=== PATIENT | male | born 1985 ===

== ENCOUNTER 2025-01-24 15:17 | Observation (INO) | payer OTHER, SELFPAY ==
[2025-01-24] VITALS (39 sets, daily range): BP systolic 111–134; BP diastolic 77–93; PULSE 97–127; RESP 15–31; TEMP 36.6–37.6; O2SAT 90–100
--- NOTE | 2025-01-24 15:30 | RT.EKG_ITS ---
APPROVED REPORT Exam: Resting ECG Reason for Exam: ETOH withdrawal Patient Location: E HR:104 bpm ECG Measurements Heart Rate 104 AXIS NJ 159 P 50 QRSd 87 QRS 18 QT 379 T -23 QTc 499 Conclusion Sinus tachycardia...rate> 99 Normal [place]/Interval NS ST changes, nothing acute
--- NOTE | 2025-01-24 15:39 | W.ED.GENAD ---
Discharge Plan Disposition Patient Disposition: Admit to [facility] Condition: Stable Discharge Details Clinical Impression: Alcohol withdrawal, Lactic acidosis Admit Date/Time: 01/24/25 19:11 Admit Provider: Clark Mckeon Attending Provider: Clark Mckeon Primary Care Provider: Unknown,Unknown ED Provider: Joey Burt [facility] General Date/Time Provider Initiated Documentation: 01/24/25 15:30. HPI Narrative: 39 year-old male presents to ED today by POV/ambulating with his mother with a chief complaint of alcohol abuse, withdrawal with onset today- has had assisted alcohol use disorder, with two brief hiatus', most recently quit for 2 weeks before going on quite a binge for the last 3 weeks due to impending divorce from his . Quality described as feels shaky, nauseous, vomiting, no radiation to cough, chest pain, severe abdominal pain, neck stiffness, slurred speech, visual changes. Severity is described as severe. Palliating factors include nothing specific attempted. Provoking factors include nothing specific. Events leading up to the incident/Associated Symptoms: Patient denies history of ETOH withdrawal seizure, is open to speaking with Awning Assembler. Patient not anticoagulated. Related Data Home Medications ?Medication ?Instructions ?Recorded ?Confirmed Unknown [No Known Home Meds] 01/24/25 01/24/25 Allergies Allergy/AdvReac Type Severity Reaction Status Date / Time No Known Allergies Allergy Unverified 01/24/25 15:31 General Stated Complaint: Anxiety COLTON: 3 Review of Systems All systems reviewed & are unremarkable except as noted in HPI and below Exam Narrative Exam Narrative: GENERAL APPEARANCE: Well-nourished, toxic, awake and alert, atraumatic, moderate acute distress. SKIN: Warm, pink, diaphoretic, has a petechial rash to his torso which he says is new, is also chronic psoriasis on both upper extremities HEAD: Normocephalic, atraumatic, normal hair distribution for gender/age. EYES: Normal conjunctiva, no exudates on lids/lashes. ENT: Nares patent, no circumoral cyanosis, no facial swelling NECK: Supple, trachea midline, painless cervical ROM. LUNGS/CHEST: Lungs CTA bilaterally- no rhonchi/rales/wheezes diffusely, non-labored respirations, normal A/P diameter, symmetrical expansion, no chest wall deformity HEART (CV/PV): Regular rate and rhythm without murmur, tachycardic, no peripheral edema, no JVD. ABDOMEN: Soft, non-distended, no guarding, no tenderness. MSK: Normal ROM, no swelling/deformity to bilateral UEs or LEs, moving all extremities without weakness, no cyanosis, spine midline without tenderness, normal curvature. NEURO: Mental Status AAOx4 - alert to person, place, time, events No facial droop, no forehead involvement. Motor: No focal weakness - strength 5/5 in bilateral UEs and LEs, proximal and distal, symmetric. Has + tongue fasciculations, no asterixis Sensory: sensation intact to light touch globally. Gait normal: patient ambulated without ataxia into ED room. PSYCH: dysthymic, cooperative, pleasant, appropriate speech Course Vital Signs Vital signs: Vital Signs Temperature 36.6 C 01/24/25 15:22 Pulse 122 H 01/24/25 15:22 Respiratory Rate 25 H 01/24/25 15:22 Blood Pressure 134/80 01/24/25 15:22 Pulse Oximetry 98 01/24/25 15:22 Temperature 36.6 C 01/24/25 15:22 Temperature Source Oral 01/24/25 15:22 Pulse 122 H 01/24/25 15:22 Respiratory Rate 25 H 01/24/25 15:22 Blood Pressure 134/80 01/24/25 15:22 Blood Pressure Position Sitting 01/24/25 15:22 Pulse Oximetry 98 01/24/25 15:22 Oxygen Delivery Method Room Air 01/24/25 15:22 Oxygen Flow Rate 0 01/24/25 15:22 Pain Level 0 01/24/25 15:22 Medical Decision Making This dictation utilizes [id number] dictation software and may contain unedited grammatical errors. 39 year-old male presents to ED today by POV/ambulating with his mother with a chief complaint of alcohol abuse, withdrawal with onset today- has had assisted alcohol use disorder, with two brief hiatus', most recently quit for 2 weeks before going on quite a binge for the last 3 weeks due to impending divorce from his . Quality described as feels shaky, nauseous, vomiting, no radiation to cough, chest pain, severe abdominal pain, neck stiffness, slurred speech, visual changes. Severity is described as severe. Palliating factors include nothing specific attempted. Provoking factors include nothing specific. Events leading up to the incident/Associated Symptoms: Patient denies history of ETOH withdrawal seizure, is open to speaking with Awning Assembler. Patients' medical history: Alcohol use disorder. Family and social history: Has been drinking 3 bottles of wine daily for the past 3 weeks, before this he took 2 weeks off from alcohol, and has a brief remission of a couple months in the remote past, denies IV drug use, has not eaten in 3 weeks per his account. Pertinent exam findings / vital signs include tongue fasciculations, benign cardiopulmonary status with sinus tachycardia, benign abdomen, neuro intact. Differential / pathologies of concern include ETOH withdrawal, hepatitis, sepsis, pancreatitis. Diagnostic studies of: -CBC, CMP, lactate, urinalysis, alcohol level, lipase, magnesium, CRP/ESR, urine drug screen, PT/INR, conjugated bilirubin level, alcohol level, hepatitis panel send no, EKG, blood cultures, x-ray chest. - CBC shows no leukocytosis, no left shift, normal - CMP has significant derangements of a mildly low sodium at 133, low potassium at 3.2, anion gap of 17.7, with significantly elevated AST at 425 greater than ALT at 90 with alk phos at 599, bilirubin 4.5 with 2.7 conjugated bilirubin - CRP is 4.78, ESR is 103 - Initial lactate 5.3 - Lipase 117 - His urine shows bilirubin, trace ketones and no signs of infection - UDS is negative - Alcohol level negative - Blood cultures pending - X-ray chest pending at time of admission - EKG shows sinus tachycardia without any ischemic changes, no T wave abnormalities - hepatitis panel pending Interventions of: -2 mg of Ativan IV, banana bag IVF, consulted with hospitalist Dr. Mckeon at 1915 who accepts for admission. ED Course/Assessment/Plan: 39-year-old male presents after 3-week binge on alcohol with withdrawal symptoms of acute nausea and vomiting and shakiness, also has significantly elevated lactate and deranged LFTs, electrolytes, was given Ativan for his tongue fasciculations, had a CIWA of 10 and initially and was well-controlled with this 1 dose of Ativan but infection cannot be ruled out so I did have the patient admitted to hospitalist service with x-ray pending for infection search, patient is open to speaking with silver recovery operator tomorrow in the morning. Dr. Mckeon excepted for admission at 1915. Disposition of Alcohol Withdrawal, Lactic Acidosis. Patient verbalized understanding of the plan and return to ED criteria and engaged in shared decision making. Medical Records Medical records reviewed: Yes I reviewed the patient's medical records. Imaging Data Radiologic Study: Attestation: I personally reviewed and interpreted this imaging study as follows: Imaging: X-Ray My impression: Pending at admission Lab Data Lab results reviewed: Yes I reviewed the patient's lab results. Labs: 01/24/25 19:08 Blood Blood Culture - Pending 01/24/25 19:08 Blood Blood Culture - Pending Laboratory Tests Range/Units 01/24/25 01/24/25 15:54 17:24 WBC (4.4-10.8) 10^3/uL 10.72 RBC (4.36-5.78) 10^6/uL 4.65 Hgb (13.5-17.5) g/dL 14.8 Hct (40.0-50.0) % 42.1 MCV (80-95) fL 91 MCH (27.0-33.0) pg 31.8 MCHC (32.0-36.0) % 35.2 RDW (11.8-14.1) % 16.9 H Plt Count (130-400) 10^3/uL 122 L MPV (8.0-11.0) fL 10.2 Immature Gran % % 0.4 Neutrophils % % 82.9 Lymphocytes % % 7.6 Monocytes % % 8.0 Eosinophils % % 0.2 Basophils % % 0.9 Nucleated RBC % (0.0-0.3) % 0.0 Absolute Neutrophils (1.2-6.7) 10^3/uL 8.88 H Absolute Lymphocytes (1.2-3.4) 10^3/uL 0.82 L Absolute Monocytes (0.1-0.8) 10^3/uL 0.86 H Absolute Eosinophils (0.0-0.7) 10^3/uL 0.02 Absolute Basophils (0.0-0.2) 10^3/uL 0.10 ESR (0-15) mm/hr 103 H PT (9.1-11.1) sec 17.6 H INR (0.9-1.1) 1.8 H VBG Lactate (<or=2.0) mmol/L 5.3 H* Sodium (136-145) mmol/L 133 L Potassium (3.5-5.1) mmol/L 3.2 L Chloride (98-107) mmol/L 93 L Carbon Dioxide (21.0-32.0) mmol/L 22.3 Anion Gap (3-11) mmol/L 17.7 H BUN (7-18) mg/dL 1 L Creatinine (0.70-1.30) mg/dL 0.8 Est GFR (CKD-EPI 2020) (mL/min/1.73m2) 115.45 Glucose (74-106) mg/dL 144 H Calcium (8.5-10.1) mg/dL 9.5 Magnesium (1.8-2.4) mg/dL 1.8 Total Bilirubin (0.2-1.0) mg/dL 4.5 H Conjugated Bilirubin (0.0-0.2) mg/dL 2.7 H AST (15-37) U/L 425 H ALT (16-63) U/L 90 H Alkaline Phosphatase (46-116) U/L 599 H C-Reactive Protein (<or=0.5) mg/dL 4.78 H Total Protein (6.4-8.2) g/dL 9.5 H Albumin (3.4-5.0) g/dL 3.7 Lipase (<78) U/L 117 H Urine Color (Yellow) Dark Yellow Urine Clarity (Clear) Clear Urine pH (5-8) 8.5 H Ur Specific [place] (1.005-1.025) 1.015 Urine Protein (Neg-Trace) mg/dL 100 H Urine Ketones (Negative) mg/dL Trace H Urine Blood (Negative) Negative Urine Nitrite (Negative) Negative Urine Bilirubin (Negative) Moderate H Urine Urobilinogen (Up to 0.2) mg/dL 4.0 H Ur Leukocyte Esterase (Negative) Negative Urine RBC (0-2) HPF 0-2 Urine WBC (0-5) HPF 0-2 Ur Epithelial Cells (Negative) HPF Rare Urine Crystals (Negative) HPF Negative Urine Bacteria (Negative) HPF Negative Urine Mucus (Negative) Heavy Ur Culture Indicated? No Urine Glucose (Negative) mg/dL 100 H Urine Opiates Screen (Negative) Negative Urine Methadone Screen (Negative) Negative Ur Barbiturates Screen (Negative) Negative Ur Tricyclics Screen (Negative) Negative Ur Amphetamines Screen (Negative) Negative U Benzodiazepines Scrn (Negative) Negative Urine Cocaine Screen (Negative) Negative Ur THC Screen (Negative) Negative Ethyl Alcohol (<10) mg/dL < 3.0 Quality:SDOH Health Related Social Needs: Health related social needs risk of homeless personal safety finding work lonely/isolated education Health related social needs details Pt needs new home, job and support. Dad [facility] [place] [facility] Parkinsons PFS All Active Problems (Updated 01/24/25 @ 19:18 by DARIN Marx) Lactic acidosis (Acute) Alcohol withdrawal (Acute) Social History Smoking/Tobacco Use Status: Former Tobacco Use Tobacco: How many years used: 19 Smoking risk assessment performed?: Yes Alcohol Intake: current Alcohol Intake frequency: 3 or more drinks per day Alcohol type: wine Drug use: Current Sobriety Substance use type: marijuana Housing: homeless Do you feel safe at home: No Do you feel safe in your relationship?: No PAWSS Have you Been Recently Intoxicated or Drunk Within the Last 30 days?: Yes Have you Ever Experienced Previous Episodes of Alcohol Withdrawal?: No Have you ever Experienced Withdrawal Seizures?: No Have you ever Experienced Delirium Tremens(DT)s?: No Have you ever undergone Alcohol Rehabilitation Treatment (i.e, inpt ot outpatient treatment programs)?: No Have you ever Experienced Blackouts?: Yes Have you ever Combined Alcohol with other Downers within the last 90 days?: No Have you ever Combined Alcohol with any other Substance of Abuse during the last 90 days?: No Positive Blood Alcohol level on Presentation? [PCS.BAL]: Unable to Obtain Evidence of Increased Autonomic Activity (i.e. HR>120, tremor, sweating, agitation, nausea)?: Yes Result: 3
[2025-01-24] MEDS: LORazepam 20 MG/10 ML VIAL IVP (16:00)
[2025-01-24] MEDS: MAGNESIUM SULFATE 8.12 MEQ, MULTIVITAMIN 10 ML, THIAMINE 100 MG, FOLIC ACID 1 MG in Nor... 168.867 MG IV (16:01)
[2025-01-24 16:22] LABS: Abs Immature Grans 0.04 10^3/uL (0.0-0.06); HCT 42.1 % (40.0-50.0); HGB 14.8 g/dL (13.5-17.5); Immature Grans % 0.4 %; MCH 31.8 pg (27.0-33.0); MCHC 35.2 % (32.0-36.0); MCV 91 fL (80-95); MPV 10.2 fL (8.0-11.0); Platelet Count 122 10^3/uL (130-400); RBC 4.65 10^6/uL (4.36-5.78); RDW 16.9 % (11.8-14.1); RDW-SD 55.7 fL; WBC 10.72 10^3/uL (4.4-10.8)
[2025-01-24 16:40] LABS: ALT 90 U/L (16-63); AST 425 U/L (15-37); Albumin 3.7 g/dL (3.4-5.0); Alkaline Phosphatase 599 U/L (46-116); Anion Gap 17.7 mmol/L (3-11); BUN 1 mg/dL (7-18); Bilirubin, Total 4.5 mg/dL (0.2-1.0); CO2 22.3 mmol/L (21.0-32.0); Calcium 9.5 mg/dL (8.5-10.1); Chloride 93 mmol/L (98-107); Estimated GFR 115.45 (mL/min/1.73m2); Glucose 144 mg/dL (74-106); Lipase 117 U/L (<78); Magnesium 1.8 mg/dL (1.8-2.4); Potassium 3.2 mmol/L (3.5-5.1); Sodium 133 mmol/L (136-145); Total Protein 9.5 g/dL (6.4-8.2)
[2025-01-24 17:55] LABS: ESR 103 mm/hr (0-15)
[2025-01-24 18:04] LABS: Glucose 100 mg/dL (Negative)
[2025-01-24 18:13] LABS: C-Reactive Protein 4.78 mg/dL (<or=0.5)
[2025-01-24 18:25] LABS: Bilirubin, Direct 2.7 mg/dL (0.0-0.2)
[2025-01-24 18:29] LABS: C & S Indicated? No; RBC 0-2 HPF (0-2); WBC 0-2 HPF (0-5)
[2025-01-24 18:31] LABS: INR 1.8 (0.9-1.1); Prothrombin Time 17.6 sec (9.1-11.1)
[2025-01-24 18:45] LABS: Cannabinoids THC Negative (Negative); METHADONE URINE SCREEN Negative (Negative)
--- NOTE | 2025-01-24 19:00 | DI.RAD_ITS ---
Exam(s) XR CHEST 2V PA LATERAL EXAM: XR CHEST 2V PA LATERAL CLINICAL HISTORY: infection search TECHNIQUE: 2D digital imaging was performed. Two views. COMPARISON: No exams were available for comparison FINDINGS: HEART: Normal size. Aorta: Not dilated. PULMONARY VASCULATURE: Normal. MEDIASTINUM: Unremarkable. LUNGS: Suboptimally inflated. Linear atelectasis or scarring at the left lower lung field. No focal area of consolidation. PLEURAL SPACE: No pleural effusion or pneumothorax. BONE:Unremarkable for age. SOFT TISSUES: Unremarkable. IMPRESSION: No acute abnormality. The preliminary [facility] report was reviewed. DATA REPOSITORY: RADIATION DOSE DELIVERED:
--- NOTE | 2025-01-24 19:38 | W.PM.HP.N ---
Date of service: 01/24/25 Time of Service: 20:00 Assessment and Plan Assessment and plan (1) Alcohol withdrawal syndrome with complication: Status: Acute Assessment and plan: Presumptive diagnosis despite negative BAL with last drink 24 hours prior Anxiety, shakes, N/V after 3 week binge on wine is consistent with EtOH withdrawal Liver enzyme elevations concerning for acute on chronic liver failure Lipase elevated 117, likely due to dehydration, however keep pancreatitis on the differential Admit to observation for EtOH withdrawal on CIWA protocol with benzodiazepines, on cardiac monitoring He is able to tolerate a diet PRN anti-emetics Madi score is zero for inpatient VTE risk, no VTE chemoprophylaxis at this time (2) Electrolyte disturbance: Status: Acute Assessment and plan: Hyponatremia 133, hypokalemia 3.2, hypochloremia 93 with elevated anion gap 17.7 on initial labs. No renal injury at this time. Will discontinue banana bag as vitamin supplementation is not acute treatment Mental status appears intact, will defer intensive thiamine supplementation Fluid resuscitation with LR 1L bolus followed by LR @ 125 Monitor metabolic panel with morning labs (3) Elevated liver function tests: Status: Acute Assessment and plan: AST more than 10x normal at 425, ALT mildly elevated at 90, alkaline phosphatase elevated more than 5x normal at 599 Elevated bilirubin, predominantly conjugated, in the setting of AST elevation more likely hepatic injury Hepatitis panel, lipid panel, iron, panel, A1C pending with morning labs On arrival labs, his Child-Monsalve score for liver disease severity is 9, class B. MELD score 19 not indicating impaired survival odds. Monitor morning CMP for post-fluid improvement (4) Lactic acidosis: Status: Acute Assessment and plan: Elevated lactic acid and elevated CRP without clear indication of infectious etiology, more likely dehydration Will repeat VBG LA in the morning (5) Alcohol dependence with alcohol-induced anxiety disorder: Status: Acute Assessment and plan: Longstanding EtOH abuse without specific diagnosis of generalized anxiety Recommended that he pursue offered recovery services History of Present Illness History of Present Illness Chief Complaint: pain, anxiety, N/V Narrative: Bird Mcgarry is a 39 year old man presenting January 24 with shooting pains, anxiety, shakes, nausea, vomiting and inability to tolerate food. Shooting pains are in his abdomen and he reports 10/10 pain when it happens. Patient reports that he had stopped drinking for 2 weeks recently, in order to save his marriage. 3 weeks ago he started drinking again when his filed for divorce. He reports that his last drink was about 24 hours before arrival. He reports that he has been drinking 3 bottles of wine per day for 3 weeks and has not eaten anything during that period. He reports heavy drinking for many years. He does not recall needing medical care for anything. He does not recall having seizures or other withdrawal symptoms in the past, particularly when he stopped drinking for 2 weeks last month. He takes no medications. He is willing to try to quit drinking now. No chest pain, no shortness of breath, no diarrhea. In the ED he was found to be tachycardic 122, tachypneic 31, with mildly low SpO2 90%. EKG with sinus tachycardia. CBC with thrombocytopenia 122. Coag panel with INR 1.8. VBG with elevated lactate 5.3. CMP with general electrolyte derangement, no apparent KRISTIN. Liver panel with elevated bilirubin 4.5 with conjugated 2.7, AST 425 more than 10x normal, ALT 90 less than 2x normal. Lipase elevated 117. CRP elevated 4.78. Urine with significant protein and urobilinogen. BAL and UDS negative. Hepatitis panel drawn. Covid/flu/RSV sent. CXR unremarkable. He was given lorazepam and a banana bag. PMH includes BUE psoriasis, never treated. PFSH All Active Problems (Updated 01/24/25 @ 22:02 by Clark Mckeon MD) Alcohol withdrawal syndrome with complication (Acute) Alcohol dependence with alcohol-induced anxiety disorder (Acute) Alcohol withdrawal (Acute) Lactic acidosis (Acute) Electrolyte disturbance (Acute) Elevated liver function tests (Acute) Social History Smoking/Tobacco Use Status: Former Tobacco Use Tobacco: How many years used: 19 Smoking risk assessment performed?: Yes Alcohol Intake: current Alcohol Intake frequency: 3 or more drinks per day Alcohol type: wine Drug use: Current Sobriety Substance use type: marijuana Housing: homeless Do you feel safe at home: No Do you feel safe in your relationship?: No Meds Allergies and Home Medications Allergies Allergy/AdvReac Type Severity Reaction Status Date / Time No Known Allergies Allergy Unverified 01/24/25 15:31 Home Medications ?Medication ?Instructions ?Recorded ?Confirmed ?Type Unknown [No Known Home Meds] 01/24/25 01/24/25 History Exam Narrative Exam Narrative: General: This is an anxious man in no acute distress HEENT: Normocephalic, atraumatic. Tongue fasciculations reported in ED, none seen on my exam. CV: tachycardic, regular rhythm. Petechia across upper torso. Resp: CTAB Abd: soft, NTND MSK: voluntary motion x4 Skin: Warm and dry. BUE with psoriatic rash Neuro: awake, alert, no focal deficits Results Labs 01/24/25 15:54 01/24/25 15:54 Labs: Laboratory Results - last 24 hr 01/24/25 01/24/25 15:54 17:24 WBC 10.72 RBC 4.65 Hgb 14.8 Hct 42.1 MCV 91 MCH 31.8 MCHC 35.2 RDW 16.9 H Plt Count 122 L MPV 10.2 Immature Gran % 0.4 Neutrophils % 82.9 Lymphocytes % 7.6 Monocytes % 8.0 Eosinophils % 0.2 Basophils % 0.9 Nucleated RBC % 0.0 Absolute Neutrophils 8.88 H Absolute Lymphocytes 0.82 L Absolute Monocytes 0.86 H Absolute Eosinophils 0.02 Absolute Basophils 0.10 ESR 103 H PT 17.6 H INR 1.8 H VBG Lactate 5.3 H* Sodium 133 L Potassium 3.2 L Chloride 93 L Carbon Dioxide 22.3 Anion Gap 17.7 H BUN 1 L Creatinine 0.8 Est GFR (CKD-EPI 2020) 115.45 Glucose 144 H Calcium 9.5 Magnesium 1.8 Total Bilirubin 4.5 H Conjugated Bilirubin 2.7 H AST 425 H ALT 90 H Alkaline Phosphatase 599 H C-Reactive Protein 4.78 H Total Protein 9.5 H Albumin 3.7 Lipase 117 H Urine Color Dark Yellow Urine Clarity Clear Urine pH 8.5 H Ur Specific [place] 1.015 Urine Protein 100 H Urine Ketones Trace H Urine Blood Negative Urine Nitrite Negative Urine Bilirubin Moderate H Urine Urobilinogen 4.0 H Ur Leukocyte Esterase Negative Urine RBC 0-2 Urine WBC 0-2 Ur Epithelial Cells Rare Urine Crystals Negative Urine Bacteria Negative Urine Mucus Heavy Ur Culture Indicated? No Urine Glucose 100 H Urine Opiates Screen Negative Urine Methadone Screen Negative Ur Barbiturates Screen Negative Ur Tricyclics Screen Negative Ur Amphetamines Screen Negative U Benzodiazepines Scrn Negative Urine Cocaine Screen Negative Ur THC Screen Negative Ethyl Alcohol < 3.0 Last Vital Signs Temp 36.6 C 01/24/25 15:22 Pulse 116 H 01/24/25 18:50 Resp 26 H 01/24/25 18:50 BP 124/77 01/24/25 17:15 Pulse Ox 93 01/24/25 18:50 PAWSS Have you Been Recently Intoxicated or Drunk Within the Last 30 days?: Yes Have you Ever Experienced Previous Episodes of Alcohol Withdrawal?: No Have you ever Experienced Withdrawal Seizures?: No Have you ever Experienced Delirium Tremens(DT)s?: No Have you ever undergone Alcohol Rehabilitation Treatment (i.e, inpt ot outpatient treatment programs)?: No Have you ever Experienced Blackouts?: Yes Have you ever Combined Alcohol with other Downers within the last 90 days?: No Have you ever Combined Alcohol with any other Substance of Abuse during the last 90 days?: No Positive Blood Alcohol level on Presentation? [PCS.BAL]: Unable to Obtain Evidence of Increased Autonomic Activity (i.e. HR>120, tremor, sweating, agitation, nausea)?: Yes Result: 3 Time Spent Time spent with Patient: 40-54 minutes Time was spent: preparing to see the patient(eg.review tests), obtaining and/or reviewing separately otained hiistory, ordering medications,tests, procedures, referring, communicating with other health direct support professional caregiver, indepentently interpreting results, counseling the patient and care coordination
--- NOTE | 2025-01-24 20:17 | W.PC.ACHO ---
Registration Status: REG ER Primary Language: Preferred Language: ED Information & Data Chief Complaint Anxiety 01/24/25 15:40 Triage Note Pt reports he typically 01/24/25 15:22 drinks 3 bottles of wine daily and regularly (for 20 years). Went two weeks without drinking recently, and started. Last drank last night, reports he is going through a divorce. Pt reports he feels like lightning bolts are shooting through his body, very anxious and shaking. Denies past detox, seizures, etc. Hasnt been eating, has been nauseous and vomiting. Most Recent Vital Signs Temperature 36.6 C 01/24/25 15:22 Temperature Source Oral 01/24/25 15:22 Pulse 116 H 01/24/25 18:50 Pulse 115 H 01/24/25 18:50 Respiratory Rate 26 H 01/24/25 18:50 Respiratory Effort Normal 01/24/25 15:41 Respiratory Depth Normal 01/24/25 15:41 Respiratory Pattern Normal 01/24/25 15:41 Blood Pressure 124/77 01/24/25 17:15 Blood Pressure Mean 90 01/24/25 17:15 Blood Pressure Position Sitting 01/24/25 15:22 Pulse Oximetry 93 01/24/25 18:50 Oxygen Delivery Method Room Air 01/24/25 15:22 Oxygen Flow Rate 0 01/24/25 15:22 Pain Level 0 01/24/25 15:22 Allergies No Known Allergies Allergy (Unverified 01/24/25 15:31) Active Medications Generic Name Dose Route Start Last Admin Trade Name Freq PRN Reason Stop Dose Admin Magnesium Sulfate 8.12 meq/ 1,013.2 mls @ 168.867 mls/hr 01/24/25 15:31 01/24/25 16:01 Multivitamins 10 ml/ Thiamine IV 01/24/25 21:30 168.867 mls/hr HCl 100 mg/ Folic Acid 1 mg/ INFUSION ONE Administration Sodium Chloride Lorazepam 2 mg 01/24/25 15:51 01/24/25 16:00 Lorazepam 20 Mg/10 Ml Vial IVP 2 mg Q3H PRN PRN Administration IV IV Catheter Type [Left Saline Lock Antecubital] IV Catheter Gauge [Left 18 Antecubital] Diet Orders Category Date Time Status Nothing Per Oral [DIET] Nutrition 01/24/25 19:13 Active Diagnostics 01/24/25 01/24/25 Range/Units 17:24 15:54 WBC 10.72 (4.4-10.8) 10^3/uL RBC 4.65 (4.36-5.78) 10^6/uL Hgb 14.8 (13.5-17.5) g/dL Hct 42.1 (40.0-50.0) % MCV 91 (80-95) fL MCH 31.8 (27.0-33.0) pg MCHC 35.2 (32.0-36.0) % RDW 16.9 H (11.8-14.1) % Plt Count 122 L (130-400) 10^3/uL MPV 10.2 (8.0-11.0) fL Immature Gran % 0.4 % Neutrophils % 82.9 % Lymphocytes % 7.6 % Monocytes % 8.0 % Eosinophils % 0.2 % Basophils % 0.9 % Nucleated RBC % 0.0 (0.0-0.3) % Absolute Neutrophils 8.88 H (1.2-6.7) 10^3/uL Absolute Lymphocytes 0.82 L (1.2-3.4) 10^3/uL Absolute Monocytes 0.86 H (0.1-0.8) 10^3/uL Absolute Eosinophils 0.02 (0.0-0.7) 10^3/uL Absolute Basophils 0.10 (0.0-0.2) 10^3/uL ESR 103 H (0-15) mm/hr PT 17.6 H (9.1-11.1) sec INR 1.8 H (0.9-1.1) VBG Lactate 5.3 H* (<or=2.0) mmol/L Sodium 133 L (136-145) mmol/L Potassium 3.2 L (3.5-5.1) mmol/L Chloride 93 L (98-107) mmol/L Carbon Dioxide 22.3 (21.0-32.0) mmol/L Anion Gap 17.7 H (3-11) mmol/L BUN 1 L (7-18) mg/dL Creatinine 0.8 (0.70-1.30) mg/dL Est GFR (CKD-EPI 2020) 115.45 (mL/min/1.73m2) Glucose 144 H (74-106) mg/dL Calcium 9.5 (8.5-10.1) mg/dL Magnesium 1.8 (1.8-2.4) mg/dL Total Bilirubin 4.5 H (0.2-1.0) mg/dL Conjugated Bilirubin 2.7 H (0.0-0.2) mg/dL AST 425 H (15-37) U/L ALT 90 H (16-63) U/L Alkaline Phosphatase 599 H (46-116) U/L C-Reactive Protein 4.78 H (<or=0.5) mg/dL Total Protein 9.5 H (6.4-8.2) g/dL Albumin 3.7 (3.4-5.0) g/dL Lipase 117 H (<78) U/L Urine Color Dark Yellow (Yellow) Urine Clarity Clear (Clear) Urine pH 8.5 H (5-8) Ur Specific [place] 1.015 (1.005-1.025) Urine Protein 100 H (Neg-Trace) mg/dL Urine Ketones Trace H (Negative) mg/dL Urine Blood Negative (Negative) Urine Nitrite Negative (Negative) Urine Bilirubin Moderate H (Negative) Urine Urobilinogen 4.0 H (Up to 0.2) mg/dL Ur Leukocyte Esterase Negative (Negative) Urine RBC 0-2 (0-2) HPF Urine WBC 0-2 (0-5) HPF Ur Epithelial Cells Rare (Negative) HPF Urine Crystals Negative (Negative) HPF Urine Bacteria Negative (Negative) HPF Urine Mucus Heavy (Negative) Ur Culture Indicated? No Urine Glucose 100 H (Negative) mg/dL Urine Opiates Screen Negative (Negative) Urine Methadone Screen Negative (Negative) Ur Barbiturates Screen Negative (Negative) Ur Tricyclics Screen Negative (Negative) Ur Amphetamines Screen Negative (Negative) U Benzodiazepines Scrn Negative (Negative) Urine Cocaine Screen Negative (Negative) Ur THC Screen Negative (Negative) Ethyl Alcohol < 3.0 (<10) mg/dL Hepatitis A IgM Ab Pending Hep Bs Antigen Pending Hep B Core Total Ab Pending Hepatitis C Antibody Pending 01/24/25 19:08 Blood Culture - Pending Blood 01/24/25 19:08 Blood Culture - Pending Blood Intake and Output - 24 Hour Total 01/24/25 15:17 thru 01/24/25 15:22 Weight 85.275 kg Falls Risk Assessment History of Falls No History 01/24/25 15:41 Contributing Factors No Factors 01/24/25 15:41 Ambulatory Aids Independent 01/24/25 15:41 Tubes/Lines None 01/24/25 15:41 Gait Evaluation No gait disturbance 01/24/25 15:41 Cognition No cognitive impairment 01/24/25 15:41 Fall Total Score 0 01/24/25 15:41 Level of Risk Standard/Low Risk 01/24/25 15:41 v v v v v v v v v Sending and/or Receiving Nurses: Please use comment section below to note any information pertinent to the patient hand-off not included above. Information / Comments:20 year Hx of 1/2 -3 bottles of wine per day. Admit through the ED to med/surg rm 216. Last drink yesterday, pt not feeling well. Recently from past 3 weeks no food, just drink. Last CIWA was 6 down from 15. N/V gone ativan given. Tachy, Resp high. Other vitals stable. Lactate is high, and Dx liver issues. Abnormal electrolytes, headache pain att. Report received from:Devendra beauty sales advisor, called at 2007.
[2025-01-24 22:32] LABS: COVID-19 PCR Negative (Negative); RSV PCR Negative (Negative)
--- NOTE | 2025-01-24 23:29 | DI.VRAD_ITS ---
PROCEDURE INFORMATION: Exam: XR Chest Exam date and time: 01/24/2025 9:44 PM Age: 39 years old Clinical indication: Fever and other: Infection search TECHNIQUE: Imaging protocol: Radiologic exam of the chest. Views: 2 views. COMPARISON: No relevant prior studies available. FINDINGS: Lungs: Unremarkable. No consolidation. Pleural spaces: Unremarkable. No pleural effusion. No pneumothorax. Heart/Mediastinum: Unremarkable. No cardiomegaly. Bones/joints: Unremarkable. IMPRESSION: No acute findings. Dictated and Authenticated by: Mayur Tomas MD. Orderin Javed Cook MD
[2025-01-24] MEDS: Ondansetron O.D.T. 4 MG TABEF PO (23:56)
[2025-01-25] VITALS (10 sets, daily range): BP systolic 105–116; BP diastolic 76–88; PULSE 87–97; RESP 15–18; TEMP 36.6–37.5; O2SAT 93–98
[2025-01-25] MEDS: LORazepam 1 MG TAB PO/SL ×3 (00:02→19:53)
[2025-01-25] MEDS: Lactated Ringers 1,000 ML 1000 ML IV (00:34)
[2025-01-25] MEDS: Lactated Ringers 1,000 ML 125 ML IV ×2 (01:51→11:54)
[2025-01-25] MEDS: Acetaminophen 325 MG TAB 650 MG PO ×3 (02:09→18:39)
[2025-01-25 07:17] LABS: Abs Immature Grans 0.02 10^3/uL (0.0-0.06); Immature Grans % 0.2 %; MCH 31.4 pg (27.0-33.0); MCHC 33.5 % (32.0-36.0); MCV 94 fL (80-95); MPV 10.5 fL (8.0-11.0); Platelet Count 104 10^3/uL (130-400); RBC 3.73 10^6/uL (4.36-5.78); RDW 17.7 % (11.8-14.1); RDW-SD 60.0 fL; WBC 8.93 10^3/uL (4.4-10.8)
[2025-01-25 07:26] LABS: HGB 11.7 g/dL (13.5-17.5)
[2025-01-25 07:27] LABS: HCT 34.9 % (40.0-50.0)
[2025-01-25 07:59] LABS: Iron 82 ug/dL (65-175); Total Iron Binding Capacity 191 ug/dL (250-450); Transferrin Sat 43 % (20-55)
--- NOTE | 2025-01-25 08:00 | DI.US_ITS ---
Exam(s) US ABDOMEN EXAM: US ABDOMEN CLINICAL HISTORY: query cirrhosis, biliary disease TECHNIQUE: Ultrasound abdomen performed using standard protocol. COMPARISON: No exams were available for comparison FINDINGS: LIVER: The liver is enlarged at 23 cm. There is increased echogenicity, significantly decreased through transmission as well as coarsened echotexture. There is small amount of surrounding ascites. There is mild nodularity of the liver surface. The caudate lobe is enlarged. The findings are consistent with cirrhosis. Large portions of the liver are not visualized. GALLBLADDER: Sludge is present. No evidence of cholelithiasis. No evidence of wall thickening. No pericholecystic fluid identified. MARITN'S SIGN: Negative. BILIARY SYSTEM: No intrahepatic or extrahepatic biliary ductal dilation. KIDNEYS: Kidneys are symmetric in size. No evidence of renal calculi. No evidence of hydronephrosis. No renal mass or cyst identified. PANCREAS: Not well visualized. SPLEEN: Enlarged at 15.4 cm. ABDOMINAL AORTA AND IVC: Not well visualized. Visualized portions normal caliber. ASCITES: Small amount of ascites is noted. IMPRESSION: Enlarged liver with features consistent with cirrhosis. The spleen is also enlarged. There is a small amount of ascites. The gallbladder contains sludge. No stones or wall thickening. No biliary dilatation. DATA REPOSITORY:
[2025-01-25 08:02] LABS: Hemoglobin A1C 5.2 % (<5.7)
[2025-01-25 08:04] LABS: Calculated LDL 133 mg/dL (<100); Cholesterol 172 mg/dL (<200); HDL Cholesterol 21 mg/dL (>or=40); Triglyceride 90 mg/dL (<150)
[2025-01-25 08:06] LABS: ALT 63 U/L (16-63); AST 300 U/L (15-37); Albumin 2.8 g/dL (3.4-5.0); Alkaline Phosphatase 456 U/L (46-116); Anion Gap 8.8 mmol/L (3-11); BUN 2 mg/dL (7-18); Bilirubin, Total 3.8 mg/dL (0.2-1.0); CO2 28.2 mmol/L (21.0-32.0); Calcium 8.7 mg/dL (8.5-10.1); Chloride 102 mmol/L (98-107); Estimated GFR 125.93 (mL/min/1.73m2); Glucose 101 mg/dL (74-106); Magnesium 2.3 mg/dL (1.8-2.4); Potassium 3.4 mmol/L (3.5-5.1); Sodium 139 mmol/L (136-145); TSH (W/Ref FT4) 4.22 uIU/mL (0.36-3.74); Total Protein 7.6 g/dL (6.4-8.2)
--- NOTE | 2025-01-25 09:26 | PDOC.CMIN ---
Date of service: 01/25/25 Time of Service: :26 Care Management Initial Assmt Initial Assessment Reason for Hospitalization: ETOH withdrawal Functional Status/Living Situation Patient Presentation: Bird was sitting up in bed when CM met with him. He was awake and alert and oriented and engaged well with CM. Bird is currently living with his in [place], [place]. They have only been about a year and are having marital difficulties. he shared that she has recently filed fore divorce and he may have to move back in with his parents temporarily. he was hoping to be able to stay in the area he lives in as he has a job there that he enjoys, working in [employer]. Unfortunately, he has not been able to find affordable housing.Bird was admitted with alcohol withdrawal. He stated that he has been drinking really heavily recently as his marriage has unravelled. He also reported however, that he has always been a drinker, just not this much. Bird agreed to talk to a Incident Manager so placed the call and Wily from [facility] came to see him. Town of Residence: [place], [place] Resides with: Spouse (estranged at the moment) Significant Other/Family: Local Natural Supports: parents Employment Status: Employed Instrumental Activities of Daily Living (ADLs): Independent Medications Medication Management: No Issues/Barriers identified Physical Functioning/Mobility Assistive Device: none Advance Directives Advance Directives: Do you have an Advance Directive: N 01/24/25, 15:18 AD On File at [facility]: N 01/24/25, 15:18 Date Asked 01/24/25 01/24/25, 15:19 AD Date Reviewed COLST On File at [facility] COLST Date Scanned Code Status Resuscitation Status Full Code Portal Pt does not currently have a portal and education provided: Yes Insurance Coverage/Financial Issues Insurance: BC/BS Care Team Visit Care Team Role Provider Type Evelyn Montoya APRN MD [facility] STAFF PHYSICIAN Unknown Unknown Primary Care Provider STAFF PHYSICIAN Elizabeth Orta RDN, SETHES Other Providers TRUMPET TEACHER Hector Hernandez RDN Other Providers TRUMPET TEACHER DARIN Marx Emergency Provider PHYSICIANS ASSISTANT Clark Mckeon MD Admit Provider [facility] STAFF PHYSICIAN Attending Provider Discharge Potential Discharge Needs: PCP F/U Appt Anticipated Barriers to Discharge: None Identified Patient/Family Education Needs: Review discharge instructions, discuss Ask Me Three Transportation: Private vehicle Plan: Anticipate Bird will be discharged home with no new services when medically cleared. He will follow up with his community providers and plan of care and transport with family. CM will follow and continue to support discharge planning. Social Determinants of Health Screening Social Determinants of health last assessed in clinic: 01/25/25 Will the Patient Participate in the Screening?: Yes Do you worry about having a steady place to live?: yes What is your living situation today?: I do not have steady housing Problems where you live: no known problems In the past 12 months, have you had to go without electric, gas, oil or water in your home?: no 1. Within the past 12 months, we worried whether our food would run out before we got money to buy more.: Never true 2. Within the past 12 months, the food we bought just didn't last and we didn't have money to get more.: Never true Has lack of transportation kept you from medical appointments or from doing things needed for daily living?: no Has anyone in your life made you feel unsafe or unsupported?: yes How often does anyone, including family and friends, physically hurt you?: Never How often does anyone, including family and friends, insult or talk down to you?: Frequently How often does anyone, including family and friends, threaten you with harm?: Rarely How often does anyone, including family and friends, scream or curse at you?: Frequently [facility] Safety total score: 13 How hard is it for you to pay for the very basics like food, housing, medical care, and heating? Would you say it is:: Not hard at all Do you want help finding or keeping work or a job?: Yes, help finding work If for any reason you need help with day-to-day activities such as bathing, preparing meals, shopping, managing finances, etc., do you get the help you need?: I get all the help I need How often do you feel lonely or isolated from those around you?: Often Do you speak a language other than Ecuadorean at home?: Yes Does the patient want assistance with any of the above?: Yes Comments: Pt is going through divorce w/ . And he doesn't feel safe w/ her or her family who are all roll dough divider. Pt must be out of current house by Health Related Social Needs Health related social needs: housing instability, housed, with risk of homelessness (Z59.811), problem related to primary support group (Z63.9), problems finding work (Z56.9), feeling lonely/isolated (Z60.8) and education (Z55.6) Health related social needs details: Pt needs new home, job and support. Dad is in [facility] in [place] for Parkinsons [facility] All Active Problems (Updated 01/25/25 @ 17:29 by Evelyn Montoya APRN) Elevated TSH (Acute) Elevated LDL cholesterol level (Acute) Alcohol withdrawal syndrome with complication (Acute) Alcohol dependence with alcohol-induced anxiety disorder (Acute) Alcohol withdrawal (Acute) Lactic acidosis (Acute) Electrolyte disturbance (Acute) Elevated liver function tests (Acute) Social History Smoking/Tobacco Use Status: Former Tobacco Use Tobacco: How many years used: 19 Smoking risk assessment performed?: Yes Alcohol Intake: current Alcohol Intake frequency: 3 or more drinks per day Alcohol type: wine Drug use: Current Sobriety Substance use type: marijuana Housing: homeless Do you feel safe at home: No Do you feel safe in your relationship?: No
--- NOTE | 2025-01-25 10:35 | W.NUTRFU ---
Date of service: 01/25/25 Time of Service: 10:35 Nutrition Note NOTE: Bird was admitted for etoh w/drawl. Received appropriate nutritional support with banana bag, additional B1, mag, thiamine, folate. Bird from [place] up staying with his parents as he is in the middle of getting divorce - stress from which contributed to recent drinking and pt states very poor intake over the last many weeks. No NFPE performed - pt declined d/t not feeling too well. No obvious outward signs of sq fat losses/muscle wasting. Poor intake recently with pt intake <500kcals per day from healthy food No wt data to see wt loss pattern - pt states UBW in the low 200's, which would result in 10-12lb estimated weight loss over the last 6 weeks or so. Nutrition Dx: inadequate intake over the last serveral weeks related to emotional stress and etoh intake, as evidenced by pt interview. Will offer ONS at regular meals. Monitor pt intake, nutrition related labs Time Spent in Nutritional Counseling and Treatment: 15 min
--- NOTE | 2025-01-25 10:38 | PGE_ITS ---
Date of Service Date of service: 01/25/25 Time of Service: 10:38 Assessment and Plan Assessment and plan (1) Alcohol withdrawal syndrome with complication: Status: Acute Assessment and plan: Presumptive diagnosis despite Ethyl < 3.0 with last drink 24 hours prior improving symptoms of anxiety, shakes, N/V after 3 week binge on wine is consistent with ETOH withdrawal Ongoing nausea CIWA score 5 to 11 Down trending liver enzyme levels, this was concerning for acute on chronic liver failure Lipase elevated 117, likely due to dehydration, however keep pancreatitis on the differential in thew setting of alcohol ingestion Continue ETOH withdrawal CIWA protocol with benzodiazepines, IV thiamine then oral when able Continue telemetry Continue diet and PRN anti-emetics Madi score was zero for inpatient VTE risk- no change and still does not need VTE chemoprophylaxis PT consult (2) Electrolyte disturbance: Status: Acute Assessment and plan: Hyponatremia 133 now 139, hypokalemia 3.2- NOW 3.4 and supplemented, hypochloremia resolved with now closed anion gap this AM Ongoing IVF LR @ 125 Monitor metabolic panel with morning labs (3) Elevated liver function tests: Status: Acute Assessment and plan: -Improving LFT's and total bilirubin - will continue to trend AST more than 10x normal at 425, ALT mildly elevated at 90, alkaline phosphatase elevated more than 5x normal at 599 Elevated bilirubin, predominantly conjugated, in the setting of AST elevation more likely hepatic injury -Hepatitis panel pending -As per US report:Enlarged liver with features consistent with cirrhosis. The spleen is also enlarged. There is a small amount of ascites. The gallbladder contains sludge -iron/TIBC 82/191- - A1C : 5.2 - normal On arrival labs, his Child-Monsalve score for liver disease severity is 9, class B. MELD score 19 not indicating impaired survival odds. CMP, CRP in AM (4) Elevated LDL cholesterol level: Status: Acute Assessment and plan: lipid panel: LDL 133, HDL 21, triglycerides 90- consider statin drugs once tr ansaminitis resolves (5) Lactic acidosis: Status: Acute Assessment and plan: resolved s/p IVF bolus and ongoing IV hydration Blood cultures pending (6) Elevated TSH: Status: Acute Assessment and plan: TSH 4.22 w T4 1.64 Will repeat studies when less acutely withdrawing for alcohol No major clinical correlation: Ascites could be d/t hypothyroidism VS cirrhosis of the liver in the setting of chronic alcohol intake (7) Alcohol dependence with alcohol-induced anxiety disorder: Status: Acute Assessment and plan: Longstanding EtOH abuse without specific diagnosis of generalized anxiety, mentioned divorce situation triggering the binge drinking reported being able to stop w/o pharmacological interventions having stopped in the past at will 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 Mistry Subjective Subjective Patient reports: no new complaints, tolerating liquids well, tolerating a regular diet, voiding w/o difficulty and nausea; denies diarrhea, vomiting, shortness of breath or fever Exam Narrative Exam Narrative: Alert and oriented X4, slight tremors with UEs on extension, no focal neurological deficits, clear lungs, S1, S2, regular , tele NSR , abdomen is non- diostended , soft and non-tender, no CVA tenderness, psoriasis scars to back - Objective Last Vital Signs Temp 37.1 C 01/25/25 09:10 Pulse 92 H 01/25/25 09:10 Resp 17 01/25/25 09:10 BP 109/86 01/25/25 09:10 Pulse Ox 94 01/25/25 09:10 Laboratory Results - last 24 hr 01/24/25 01/24/25 01/24/25 15:54 17:24 21:32 WBC 10.72 RBC 4.65 Hgb 14.8 Hct 42.1 MCV 91 MCH 31.8 MCHC 35.2 RDW 16.9 H Plt Count 122 L MPV 10.2 Immature Gran % 0.4 Neutrophils % 82.9 Lymphocytes % 7.6 Monocytes % 8.0 Eosinophils % 0.2 Basophils % 0.9 Nucleated RBC % 0.0 Absolute Neutrophils 8.88 H Absolute Lymphocytes 0.82 L Absolute Monocytes 0.86 H Absolute Eosinophils 0.02 Absolute Basophils 0.10 ESR 103 H PT 17.6 H INR 1.8 H VBG Lactate 5.3 H* Sodium 133 L Potassium 3.2 L Chloride 93 L Carbon Dioxide 22.3 Anion Gap 17.7 H BUN 1 L Creatinine 0.8 Est GFR (CKD-EPI 2020) 115.45 Glucose 144 H Hemoglobin A1c Calcium 9.5 Phosphorus Magnesium 1.8 Iron TIBC Transferrin % Sat Total Bilirubin 4.5 H Conjugated Bilirubin 2.7 H AST 425 H ALT 90 H Alkaline Phosphatase 599 H C-Reactive Protein 4.78 H Total Protein 9.5 H Albumin 3.7 Triglycerides Total Cholesterol LDL Cholesterol, Calc HDL Cholesterol Lipase 117 H TSH Free T4 Urine Color Dark Yellow Urine Clarity Clear Urine pH 8.5 H Ur Specific [place] 1.015 Urine Protein 100 H Urine Ketones Trace H Urine Blood Negative Urine Nitrite Negative Urine Bilirubin Moderate H Urine Urobilinogen 4.0 H Ur Leukocyte Esterase Negative Urine RBC 0-2 Urine WBC 0-2 Ur Epithelial Cells Rare Urine Crystals Negative Urine Bacteria Negative Urine Mucus Heavy Ur Culture Indicated? No Urine Glucose 100 H Urine Opiates Screen Negative Urine Methadone Screen Negative Ur Barbiturates Screen Negative Ur Tricyclics Screen Negative Ur Amphetamines Screen Negative U Benzodiazepines Scrn Negative Urine Cocaine Screen Negative Ur THC Screen Negative Ethyl Alcohol < 3.0 COVID-19 Source Nasopharynx SARS-CoV-2 (PCR) Negative Influenza Type A (PCR) Negative Influenza Type B (PCR) Negative RSV (PCR) Negative 01/25/25 06:50 WBC 8.93 RBC 3.73 L Hgb 11.7 L D Hct 34.9 L MCV 94 MCH 31.4 MCHC 33.5 RDW 17.7 H Plt Count 104 L MPV 10.5 Immature Gran % 0.2 Neutrophils % 79.2 Lymphocytes % 10.4 Monocytes % 8.4 Eosinophils % 1.0 Basophils % 0.8 Nucleated RBC % 0.0 Absolute Neutrophils 7.07 H Absolute Lymphocytes 0.93 L Absolute Monocytes 0.75 Absolute Eosinophils 0.09 Absolute Basophils 0.07 ESR PT INR VBG Lactate 1.3 Sodium 139 Potassium 3.4 L Chloride 102 Carbon Dioxide 28.2 Anion Gap 8.8 BUN 2 L Creatinine 0.6 L Est GFR (CKD-EPI 2020) 125.93 Glucose 101 Hemoglobin A1c 5.2 Calcium 8.7 Phosphorus 3.8 Magnesium 2.3 Iron 82 TIBC 191 L Transferrin % Sat 43 Total Bilirubin 3.8 H Conjugated Bilirubin AST 300 H ALT 63 Alkaline Phosphatase 456 H C-Reactive Protein Total Protein 7.6 Albumin 2.8 L Triglycerides 90 Total Cholesterol 172 LDL Cholesterol, Calc 133 H HDL Cholesterol 21 L Lipase TSH 4.22 H Free T4 1.64 H Urine Color Urine Clarity Urine pH Ur Specific [place] Urine Protein Urine Ketones Urine Blood Urine Nitrite Urine Bilirubin Urine Urobilinogen Ur Leukocyte Esterase Urine RBC Urine WBC Ur Epithelial Cells Urine Crystals Urine Bacteria Urine Mucus Ur Culture Indicated? Urine Glucose Urine Opiates Screen Urine Methadone Screen Ur Barbiturates Screen Ur Tricyclics Screen Ur Amphetamines Screen U Benzodiazepines Scrn Urine Cocaine Screen Ur THC Screen Ethyl Alcohol COVID-19 Source SARS-CoV-2 (PCR) Influenza Type A (PCR) Influenza Type B (PCR) RSV (PCR) PAWSS Have you Been Recently Intoxicated or Drunk Within the Last 30 days?: Yes Have you Ever Experienced Previous Episodes of Alcohol Withdrawal?: No Have you ever Experienced Withdrawal Seizures?: No Have you ever Experienced Delirium Tremens(DT)s?: No Have you ever undergone Alcohol Rehabilitation Treatment (i.e, inpt ot outpatient treatment programs)?: No Have you ever Experienced Blackouts?: Yes Have you ever Combined Alcohol with other Downers within the last 90 days?: No Have you ever Combined Alcohol with any other Substance of Abuse during the last 90 days?: No Positive Blood Alcohol level on Presentation? [PCS.BAL]: Unable to Obtain Evidence of Increased Autonomic Activity (i.e. HR>120, tremor, sweating, agitation, nausea)?: Yes Result: 3 Time Spent with Patient Time Spent with Patient: >50 minutes Time was spent: preparing to see the patient(eg.review tests), obtaining and/or reviewing separately otained hiistory, ordering medications,tests, procedures, referring, communicating with other health emergency care attendant, indepentently interpreting results, counseling the patient, care coordination and other
[2025-01-25] MEDS: POTASSIUM CHLORIDE 20 MEQ/100 ML BAG 50 MEQ IV_INF ×2 (11:56→15:27)
--- NOTE | 2025-01-25 13:15 | NUR.NOTE ---
Nursing Note: Documentation by Landy Fontanez, [employer] student reviewed
[2025-01-25 19:02] LABS: Hepatitis A Antibody IgM Negative (Negative); Hepatitis C Ab w Rflx HCV PCR Negative (Negative)
[2025-01-26] MEDS: Lactated Ringers 1,000 ML 125 ML IV ×2 (00:30→08:23)
[2025-01-26 03:13] VITALS: BP 118/84; PULSE 87; RESP 14; TEMP 36.8; O2SAT 96
[2025-01-26] MEDS: Acetaminophen 325 MG TAB 650 MG PO ×3 (03:44→14:26)
[2025-01-26] MEDS: LORazepam 1 MG TAB PO/SL ×3 (03:45→14:26)
[2025-01-26 07:07] LABS: Abs Immature Grans 0.02 10^3/uL (0.0-0.06); HCT 35.8 % (40.0-50.0); HGB 11.9 g/dL (13.5-17.5); Immature Grans % 0.3 %; MCH 31.6 pg (27.0-33.0); MCHC 33.2 % (32.0-36.0); MCV 95 fL (80-95); MPV 10.2 fL (8.0-11.0); Platelet Count 86 10^3/uL (130-400); RBC 3.76 10^6/uL (4.36-5.78); RDW 17.7 % (11.8-14.1); RDW-SD 62.8 fL; WBC 7.90 10^3/uL (4.4-10.8)
[2025-01-26 07:25] LABS: ALT 57 U/L (16-63); AST 226 U/L (15-37); Albumin 2.6 g/dL (3.4-5.0); Alkaline Phosphatase 419 U/L (46-116); Anion Gap 9.5 mmol/L (3-11); BUN 2 mg/dL (7-18); Bilirubin, Total 3.1 mg/dL (0.2-1.0); C-Reactive Protein 4.49 mg/dL (<or=0.5); CO2 25.5 mmol/L (21.0-32.0); Calcium 8.8 mg/dL (8.5-10.1); Chloride 106 mmol/L (98-107); Estimated GFR 125.93 (mL/min/1.73m2); Glucose 94 mg/dL (74-106); Magnesium 2.1 mg/dL (1.8-2.4); Potassium 3.8 mmol/L (3.5-5.1); Sodium 141 mmol/L (136-145); Total Protein 7.1 g/dL (6.4-8.2)
[2025-01-26 07:27] VITALS: BP 111/85; PULSE 94; RESP 17; TEMP 36.4; O2SAT 95
--- NOTE | 2025-01-26 07:32 | PT.INIE ---
PT Notes Visit Reasons: ETOH Withdrawal Inpatient Physical Therapy Evaluation I certify the need for these services as being medically necessary and skilled as furnished under this plan of treatment while under my care. Please sign and return within 14 days if you agree with the plan of care listed below.? Thank you for this referral! ? Referring Physician? Date Referring Doctor:? Evelyn Montoya NP PT Orders: PT CONSULT for safety consult Precautions: ETOH withdrawl Patient Profile/Admitting Diagnosis:? The patient is a 39 yo male adm on 01/24/25 for alcohol withdrawl, electrolyte imbalance and elevated LFTs. Patient reported shooting abdominal pains, anxiety, shakes, nausea, vomiting and inability to tolerate food. Shooting pains are in his abdomen and he reports 10/10 pain when it happens. Patient reports that he had stopped drinking for 2 weeks recently, in order to save his marriage. 3 weeks ago he started drinking again when his filed for divorce. He reports that his last drink was about 24 hours before arrival. He reports that he has been drinking 3 bottles of wine per day for 3 weeks and has not eaten anything during that period. He reports heavy drinking for many years. Past Medical History:untreated psoriasis Medications: See chart Social History/Home Situation: Currently going through a divorce. Previously living with his in [place] and working in [place]. Currently staying with his parents in [place] and plans on returning there. Subjective: Patient reports no concerns about his mobility. Reports he was unsteady and not feeling well when he was seen by the nurse practioner. Still feels like he has to concentrate on mobility, but overall feels safe. Objective: vitals stable. Taken by [facility] while PT in room. Mental Status: Patient is alert and oriented. Pain: Report no pain Vital Signs: see [facility] note ROM/Strength: Upper extremities: WFL without pain Lower extremities: WFL without pain Sensation: No reports of numbness or tingling Soft tissue/edema: psoriasis observed on right thigh, back Bed Mobility: Supine to/from sit independent with cuing to pause prior to standing Transfers: Sit to/from stand indepedent with cuing to pause prior to walking Gait: Ambulated 120 feet with assist for IV pole with very small LOB with turning secondary to turning quickly. Recommended patient move a little more slowly until he feels back to baseline. Balance: Mildly unsteady gait [facility] AM-PAC 6 clicks Basic Mobility Inpatient Short Form: Raw Score:?23? CMS Score: 11.2% Informed Consent/Education:? Patient instructed in purpose of PT consult and plan of care and is agreeable Assessment:? Patient is a?39 yo male adm on 01/24/25 for alcohol withdrawl, electrolyte imbalance and elevated LFTs.? Patient is not mobilizing at his baseline, but is safely mobilizing independently in his room. Needs to decrease his speed of mobility until he feels he is back at baseline for his balance. No additional PT needs or discharge recommendations at this time. Patient is assessed as:? Low 19718??complexity based on the following: History: none Examination: see above Presentation: Stable and uncomplicated? Decision Making:? Low (0 history, 1-2 exam, stable/predictable, easy 20) Plan of Care/Treatment Plan: No additional PT needs at this time. DISCHARGE RECOMMENDATIONS: none Informed consent Prior to the start and throughout the course of the examination and treatment, patient was made aware of the specifics and purpose of the physical assessment and treatment procedures. Appropriate draping procedures were utilized to protect modesty where applicable. Billing Charges: Treatment Units Time Duration Manual Therapy(49279) Hands-on techniques to modulate pain increase joint range of motion reduce or eliminate soft tissue swelling, inflammation, or restriction facilitate relaxation and improve contractile and non-contractile tissue extensibility ? ? Therapeutic Procedures (99807) Instruction in therapeutic exercises to develop strength and endurance, range of motion and flexibility. HEP instruction and review: Provided skilled instruction in proper exercise performance: Provided skilled manual cues to facilitate proper muscle recruitment and/or movement pattern Neurological Re-Education(06340) To improve balance, coordination, kinesthetic and proprioceptive sensations. ? ? Ultrasound(14285) To promote healing. ? ? Gait Training(59939) ? ? Therapeutic Activity(52663) Instruction in dynamic activities with one on one patient contact by the provider to improve functional performance as follows: ?0 ?5 Self Care Training(57779) ? ? E-Stim (Attended)(75782) ? ? Low IE(36648) 1 9 Mod IE(48852) ? ? High IE(81946) ? ? Time Coded Treatment Time ? 5 Total Treatment Time ? 14
[2025-01-26] MEDS: THIAMINE 100 MG in Normal Saline 100 ML 200 MG IVPB (08:22)
[2025-01-26 09:55] VITALS: BP 118/87; PULSE 95; RESP 17; TEMP 36.6; O2SAT 94
--- NOTE | 2025-01-26 10:49 | DSE_ITS ---
Date of service: 01/26/25 Time of Service: 10:49 DS: Diagnosis Discharge Diagnosis (1) Alcohol withdrawal syndrome with complication: Status: Acute (2) Electrolyte disturbance: Status: Acute (3) Elevated liver function tests: Status: Acute (4) Elevated LDL cholesterol level: Status: Acute (5) Lactic acidosis: Status: Acute (6) Elevated TSH: Status: Acute (7) Alcohol dependence with alcohol-induced anxiety disorder: Status: Acute Discharge Plan Disposition Patient Disposition: Home Condition: Improving Discharge Details Reason For Visit: ETOH Withdrawal Admit Date/Time: 01/24/25 19:11 Admit Provider: Clark Mckeon Attending Provider: Clark Mckeon Primary Care Provider: Unknown,Unknown Hospital Course Hospital Course: Bird Mcgarry is a 39 year old man with a past medical history of psoriasis on PRN clobetasol, intermittent ETOH intake with previous elevation in LFT's with follow-up by his [place]-based PCP, who presented on January 24 with shooting pains, anxiety, shakes, nausea, vomiting and inability to tolerate food. Shooting pains are in his abdomen and he reports 10/10 pain when it happens. Patient reported that he had stopped drinking for 2 weeks recently, in order to save his marriage. 3 weeks ago he started drinking again when his filed for divorce. He reported heavy drinking for many years, no recollection of needing medical care for anything, no history of having seizures or other withdrawal symptoms in the past. In the ED he was found to be tachycardic 122, tachypneic 31, with mildly low SpO2 90%. EKG with sinus tachycardia without signs of coronary occlusion. Work- up showed CBCs with thrombocytopenia 122. Coag panel with INR 1.8. VBG with elevated lactate 5.3 with repeat at 1.3. CMP with mild hypokalemia , positive anion gap with resolution at discharge time. Liver panel with elevated elevated bilirubin 4.5 with conjugated 2.7, and LFT's (AST 425 , ALT 90 ) , lipase was 117. CRP elevated 4.78 - trending down. Urine with significant protein and urobilinogen. BAL and UDS negative. Hepatitis panel was negative, Covid/flu/RSV negative . He was given lorazepam and a banana bag. and admitted to the medical surgical floor for ETOH withdrawal, elevated LFT's. Both TSH and T4 were elevated and will require re-evaluation by PCP. abdominal US showed slepnomegaly, hepatomegaly consistent with cirrhosis, small amount of ascites, and some Gallbladder sludge without cholelithiasis or biliary dilatation. The patient continue to receive IVF, PRN lorazepam as per [facility] protocole. The patient clinically improved, H&H showed stable anemia w/o acute source of blood loss, platelets at 86. The patient will be discharged home with follow-up with PCP within 7 days of discharge. The patient reporting that he is ready to stop drinking and met with executive business coach with planned outpatient fol low-up; the patient declined pharmacological therapy to support ETOH dependence at this time, agrees with gabapentin taper and requesting medicine for anxiety- few lorazepam low dose pills ordered with recommendation to discuss anti-anxiety medicines with PCP. Discussed with Dr Mistry Recommendations for Follow Up Recommended tests to be ordered by follow up provider: CMP, CBC follow-up on hepatitis panel, LDL 133, TSH 4.22 T4 1.64 Home Meds and New Rx's Prescriptions: New gabapentin 300 mg Capsule See Rx Instructions .ROUTE .COMPLEX Qty: 4 0RF Rx Instructions: 300 mg orally take 300 mg at bedtime on 01/26 Take 300 mg orally in AM and at bedtime on 01/27 Then take 300 mg orally at bedtime on 01/28 then stop ondansetron 4 mg Tablet,Disintegrating 4 mg PO Q8H PRN PRNQty: 10 0RF thiamine HCl (vitamin B1) 100 mg tablet 100 mg PO DAILY Qty: 30 0RF folic acid 1 mg tablet 1 mg PO DAILY Qty: 30 0RF lorazepam 0.5 mg tablet 0.5 mg PO BID PRNQty: 8 0RF clobetasol 0.05 % cream 1 applic topical BID 7 Days Qty: 15 0RF famotidine [Pepcid] 20 mg tablet 20 mg PO BID Qty: 30 0RF Discharge Instructions Referrals: Unknown,Unknown [Primary Care Provider, Unknown] Referral Note: Follow-up with outpatient provider Mayte Pitts [Other] Referral Note: Follow-up within 7 days of discharged Activity:: Activity as Tolerated Equipment/Supplies:: No Equipment Needed Diet:: Low fat DS: Summary Time Spent with Patient providing and/or coordinating discharge services: Greater than 30 minutes Status at Discharge Functional status at discharge: independent ambulation Overall status at discharge: patient is progressing back to baseline Mental Status: mental status grossly normal Speech and Movement: speech and movement normal Mood: congruent mood Affect: normal affect Quality:SDOH Health Related Social Needs: Health related social needs risk of homeless personal safety finding work lonely/isolated education Health related social needs details Pt needs new home, job and support. Dad is in [facility] house in [place] for Parkinsons Health related social needs details: Pt needs new home, job and support. Dad is in [facility] in [place] for Parkinsons Exam Narrative Exam Narrative: Alert and oriented X4, no tremors, slightly flushed face no diaphoresis , no focal neurological deficits, clear lungs, S1, S2, regular , tele NSR , abdomen is non-distended , soft and non-tender, no CVA tenderness, psoriasis patches/ scars to back and UEs Psych Mental Status: mental status grossly normal Speech and Movement: speech and movement normal Mood: congruent mood Affect: normal affect DS: Data Vitals/I&O Vitals and I&O: Vital Signs Temperature 36.6 C 01/26/25 09:55 Temperature Source Temporal Artery Scan 01/26/25 09:55 Pulse 95 H 01/26/25 09:55 Pulse Rhythm Regular 01/24/25 20:33 Pulse 97 H 01/24/25 20:10 Respiratory Rate 17 01/26/25 09:55 Respiratory Effort Normal 01/24/25 20:33 Respiratory Depth Normal 01/24/25 20:33 Respiratory Pattern Normal 01/24/25 20:33 Blood Pressure 118/87 01/26/25 09:55 Blood Pressure Mean 97 01/26/25 09:55 Blood Pressure Position Sitting 01/24/25 15:22 Pulse Oximetry 94 01/26/25 09:55 Oxygen Delivery Method Room Air 01/26/25 09:55 Oxygen Flow Rate 0 01/26/25 09:55 Pain Level 0 01/26/25 07:27 Comment Pt requested to not be woken up for vitals 01/26/25 01:30 Intake & Output 01/25/25 01/25/25 01/26/25 11:59 23:59 11:59 Intake Total 3465.283 / 4443.116 977.833 / 4443.116 1435.417 / 1435.417 Balance 3465.283 / 4443.116 977.833 / 4443.116 1435.417 / 1435.417 Intake: IV 3265.283 / 4006.116 740.833 / 4006.116 1435.417 / 1435.417 Oral 200 / 437 237 / 437 Other: Urine Color Light Michelle Comment per patient Pt voids independently Emesis Description None None Retching Data Completed and Pending Labs on day of discharge: Labs from last 24 hours 01/26/25 06:50 WBC 7.90 RBC 3.76 L Hgb 11.9 L Hct 35.8 L MCV 95 MCH 31.6 MCHC 33.2 RDW 17.7 H Plt Count 86 L MPV 10.2 Immature Gran % 0.3 Neutrophils % 78.3 Lymphocytes % 10.8 Monocytes % 8.1 Eosinophils % 1.6 Basophils % 0.9 Nucleated RBC % 0.0 Absolute Neutrophils 6.19 Absolute Lymphocytes 0.85 L Absolute Monocytes 0.64 Absolute Eosinophils 0.13 Absolute Basophils 0.07 Sodium 141 Potassium 3.8 Chloride 106 Carbon Dioxide 25.5 Anion Gap 9.5 BUN 2 L Creatinine 0.6 L Est GFR (CKD-EPI 2020) 125.93 Glucose 94 Calcium 8.8 Magnesium 2.1 Total Bilirubin 3.1 H AST 226 H ALT 57 Alkaline Phosphatase 419 H C-Reactive Protein 4.49 H Total Protein 7.1 Albumin 2.6 L Preliminary micro results at discharge 01/24/25 21:26 Blood Blood Culture - Preliminary NO GROWTH 24 HOURS 01/24/25 21:18 Blood Blood Culture - Preliminary NO GROWTH 24 HOURS PFSH All Active Problems (Updated 01/25/25 @ 17:29 by Evelyn Montoya APRN) Elevated TSH (Acute) Elevated LDL cholesterol level (Acute) Alcohol withdrawal syndrome with complication (Acute) Alcohol dependence with alcohol-induced anxiety disorder (Acute) Alcohol withdrawal (Acute) Lactic acidosis (Acute) Electrolyte disturbance (Acute) Elevated liver function tests (Acute) Social History Smoking/Tobacco Use Status: Former Tobacco Use Tobacco: How many years used: 19 Smoking risk assessment performed?: Yes Alcohol Intake: current Alcohol Intake frequency: 3 or more drinks per day Alcohol type: wine Drug use: Current Sobriety Substance use type: marijuana Housing: homeless Do you feel safe at home: No Do you feel safe in your relationship?: No Time Spent with Patient Time Spent with Patient: >85 minutes Time was spent: preparing to see the patient(eg.review tests), obtaining and/or reviewing separately otained hiistory, ordering medications,tests, procedures, referring, communicating with other health career guidance technician, indepentently interpreting results, counseling the patient, care coordination and other
[2025-01-26 11:31] VITALS: BP 108/80; PULSE 81; RESP 17; TEMP 36.7; O2SAT 95
[2025-01-26 13:03] VITALS: BP 118/85; PULSE 90; RESP 17; TEMP 36.9; O2SAT 93
[2025-01-26] MEDS: Gabapentin 300 MG CAP PO (14:26)
[2025-01-26 15:37] VITALS: BP 117/84; PULSE 89; RESP 17; TEMP 36.8; O2SAT 95
--- NOTE | 2025-01-26 16:34 | PDOC.CMDIS ---
Date of service: 01/26/25 Time of Service: 16:34 LACE Index Scoring Tool Questions: Length of Stay (in days): 2 Was the patient admitted via the E.D.?: Yes E.D. Visits: 1 Answers: Total Score: 6 Risk of Readmission: Low Risk Care Management Discharge Plan Reason for Hospitalization: ETOH withdrawal Discharge Plan: Bird will be discharged home with no new services today. He will follow up with his community providers and plan of care and transport with family. Patient/Family Education Needs: Review of discharge instructions, activity, limitations, and plan of care. Discuss ask me three. SDOH Health Related Social Needs: Health related social needs risk of homeless personal safety finding work lonely/isolated education Health related social needs details Pt needs new home, job and support. Dad is in [facility] in [place] for Parkinsons Health related social needs details: Pt needs new home, job and support. Dad is in [facility] for Parkinsons
== END 2025-01-26 16:33 | disposition home or self-care (01) ==
LOC: ER 19:18 → MS 20:32
PROVIDERS: Admitting Provider Family Medicine; Emergency Provider Physician Assistant; Responsible Provider Nurse Practitioner Acute Care; Visit Provider Family Medicine
DX: F10.239 Alcohol dependence with withdrawal, unspecified (principal); E87.20 Acidosis, unspecified; D69.6 Thrombocytopenia, unspecified; Z59.811 Housing instability, housed, with risk of homelessness; R45.89 Other symptoms and signs involving emotional state; F10.280 Alcohol dependence with alcohol-induced anxiety disorder; Y90.0 Blood alcohol level of less than 20 mg/100 ml; L40.8 Other psoriasis; R11.2 Nausea with vomiting, unspecified; R79.89 Other specified abnormal findings of blood chemistry; E87.1 Hypo-osmolality and hyponatremia; E87.6 Hypokalemia; E87.8 Other disorders of electrolyte and fluid balance, not elsewhere classified; R18.8 Other ascites; R16.0 Hepatomegaly, not elsewhere classified; E78.9 Disorder of lipoprotein metabolism, unspecified; R74.01 Elevation of levels of liver transaminase levels
CPT/HCPCS: 00123; 36415; 80053; 80061; 80307; 83690; 85652; 86704; 86709; 86803; 87040; 87340; 87637; 93005; 97161; 71046; 76700; 80320; 81003; 81015; 82248; 83036; 83540; 83550; 83605; 83735; 84100; 84439; 84443; 85025; 85610; 86140; 93010; 99222; 99233; 99239; G0378; J2060; J3411; J3475; J3480

== ENCOUNTER 2025-04-17 10:54 | Outpatient (REF) | payer OTHER, SELFPAY ==
[2025-04-17 19:04] LABS: HCT 30.5 % (40.0-50.0); HGB 10.6 g/dL (13.5-17.5); MCH 37.2 pg (27.0-33.0); MCHC 34.8 % (32.0-36.0); MPV 11.0 fL (8.0-11.0); Platelet Count 127 10^3/uL (130-400); RBC 2.85 10^6/uL (4.36-5.78); RDW 15.8 % (11.8-14.1); RDW-SD 61.3 fL; WBC 17.09 10^3/uL (4.4-10.8)
[2025-04-17 19:21] LABS: MCV 107 fL (80-95)
[2025-04-17 19:38] LABS: ALT 43 U/L (10-49); AST 281 U/L (<34); Albumin 3.8 g/dL (3.2-5.0); Alkaline Phosphatase 416 U/L (46-116); Anion Gap 17.1 mmol/L (3-11); BUN < 5 mg/dL (9-23); Bilirubin, Total 6.6 mg/dL (0.2-1.2); CO2 21.6 mmol/L (20.0-31.0); Calcium 8.8 mg/dL (8.3-10.6); Chloride 97 mmol/L (98-107); Glucose 125 mg/dL (74-106); Potassium 3.7 mmol/L (3.5-5.1); Sodium 136 mmol/L (136-145); Total Protein 9.3 g/dL (5.7-8.2)
== END 2025-04-17 10:55 | disposition home or self-care (01) ==
LOC: NCHCN 10:54
PROVIDERS: Visit Provider Family Medicine
DX: K70.30 Alcoholic cirrhosis of liver without ascites (principal)
CPT/HCPCS: 80053; 85027

== ENCOUNTER 2025-04-19 10:22 | Inpatient (IN) | payer OTHER, SELFPAY ==
[2025-04-19] VITALS (94 sets, daily range): BP systolic 91–113; BP diastolic 62–78; PULSE 92–116; RESP 0–36; TEMP 36–37; O2SAT 92–98
--- NOTE | 2025-04-19 | DI.US_ITS ---
Exam(s) US ABDOMEN EXAM: US ABDOMEN CLINICAL HISTORY: liver failure, bili. obstruction? PVT/Budd Chiari? TECHNIQUE: Ultrasound abdomen performed using standard protocol. COMPARISON: US US ABDOMEN from 01/25/2025 FINDINGS: LIVER: The liver is again noted to be enlarged at 24 cm in length. It previously measured 22.9 cm. There is increased echogenicity and coarsened echotexture as well as nodular surface. No focal liver lesion is identified. Due to the increased echogenicity and decreased through transmission, posterior portions of the liver are not well visualized. The portal vein is patent and shows hepatopetal flow. The the main hepatic veins were not well visualized. There is a plate appropriate flow direction in the visualized hepatic veins. No focal liver lesions are seen. GALLBLADDER: No evidence of cholelithiasis. Sludge is again noted. No evidence of wall thickening. No pericholecystic fluid identified. MARTIN'S SIGN: Negative. BILIARY SYSTEM: No intrahepatic or extrahepatic biliary ductal dilation. KIDNEYS: Kidneys are symmetric in size. No evidence of renal calculi. No evidence of hydronephrosis. No renal mass or cyst identified. PANCREAS: Normal where visualized. The tail is obscured. ABDOMINAL AORTA AND IVC: Visualized portions of the aorta are normal caliber. The IVC shows appropriate directional flow. No evidence of thrombosis. ASCITES: There is a small amount ascites around the liver and gallbladder. SPLEEN: Enlarged at 16.2 cm in length. Previous measurement was 15.4 cm. IMPRESSION: The liver is again noted to have a cirrhotic appearance. Splenomegaly. No evidence of portal venous thrombosis. Normal flow direction. The visualized hepatic veins appear patent and show appropriate flow direction. Trace amount of ascites again noted around the liver and gallbladder. Gallbladder sludge. DATA REPOSITORY:
--- NOTE | 2025-04-19 10:15 | RT.EKG_ITS ---
APPROVED REPORT Exam: Resting ECG Reason for Exam: detox, tachycardia Patient Location: E HR:109 bpm ECG Measurements Heart Rate 109 AXIS WY 163 P 7 QRSd 84 QRS 9 QT 337 T -24 QTc 455 Conclusion Sinus tachycardia...rate> 99
[2025-04-19 11:05] LABS: Abs Immature Grans 0.05 10^3/uL (0.0-0.06); HCT 31.2 % (40.0-50.0); HGB 10.4 g/dL (13.5-17.5); Immature Grans % 0.4 %; MCH 35.1 pg (27.0-33.0); MCHC 33.3 % (32.0-36.0); MCV 105 fL (80-95); MPV 10.1 fL (8.0-11.0); Platelet Count 110 10^3/uL (130-400); RBC 2.96 10^6/uL (4.36-5.78); RDW 15.4 % (11.8-14.1); RDW-SD 59.6 fL; WBC 13.80 10^3/uL (4.4-10.8)
[2025-04-19 11:08] LABS: BE (Venous) 5 mmol/L (-2-3); HCO3 (Venous) 28 mmol/L (23-28); O2 Sat (Venous) 89 %; TCO2 (Venous) 25 mmol/L (24-29); pCO2 (Venous) 36 mmHg (41-51); pO2 (Venous) 56 mmHg
[2025-04-19 11:21] LABS: INR 2.3 (0.9-1.1); PTT Activated 34.8 sec (20.6-30.2); Prothrombin Time 21.8 sec (9.1-11.1)
[2025-04-19 11:38] LABS: Lipase 92 U/L (<53); Magnesium 2.1 mg/dL (1.6-2.6)
[2025-04-19 11:41] LABS: ALT 34 U/L (10-49); AST 232 U/L (<34); Albumin 3.6 g/dL (3.2-5.0); Alkaline Phosphatase 338 U/L (46-116); Anion Gap 12.3 mmol/L (3-11); BUN 6 mg/dL (9-23); Bilirubin, Total 7.8 mg/dL (0.2-1.2); CO2 25.2 mmol/L (20.0-31.0); Calcium 9.2 mg/dL (8.3-10.6); Chloride 98 mmol/L (98-107); Glucose 126 mg/dL (74-106); Potassium 3.8 mmol/L (3.5-5.1); Sodium 136 mmol/L (136-145); Total Protein 9.3 g/dL (5.7-8.2)
[2025-04-19 11:43] LABS: TSH (W/Ref FT4) 4.84 uIU/mL (0.55-4.78)
[2025-04-19] MEDS: Lactated Ringers 1,000 ML 1000 ML IV (11:59)
--- NOTE | 2025-04-19 12:09 | W.ED.GENAD ---
Discharge Plan Disposition Patient Disposition: Admit to [facility] Condition: Serious Discharge Details Clinical Impression: Elevated liver function tests, Hyperbilirubinemia, Acute dehydration, Alcohol withdrawal, Thrombocytopenia, Anemia Primary Care Provider: Unknown,Unknown ED Provider: Charan Plata Home Meds and New Rx's Prescriptions: No Action gabapentin 300 mg Capsule See Rx Instructions .ROUTE .COMPLEX Qty: 4 0RF Rx Instructions: 300 mg orally take 300 mg at bedtime on 01/26 Take 300 mg orally in AM and at bedtime on 01/27 Then take 300 mg orally at bedtime on 01/28 then stop ondansetron 4 mg Tablet,Disintegrating 4 mg PO Q8H PRN PRNQty: 10 0RF thiamine HCl (vitamin B1) 100 mg tablet 100 mg PO DAILY Qty: 30 0RF folic acid 1 mg tablet 1 mg PO DAILY Qty: 30 0RF lorazepam 0.5 mg tablet 0.5 mg PO BID PRNQty: 8 0RF famotidine [Pepcid] 20 mg tablet 20 mg PO BID Qty: 30 0RF HPI General Mode of arrival: ambulatory. Date/Time Provider Initiated Documentation: 04/19/25 10:36. Limitations to Documentation: no limitations. Information obtained by: patient. HPI Narrative: 39-year-old male presents from primary care office with concern for worsening jaundice, petechial rash, tachycardia and low blood pressure. Patient was recently seen and started on outpatient detox with clonazepam and clonidine. He notes of the past few days he has been using these and not drinking alcohol. He is not been feeling well and sleeping excessively. He went to PCP today to ask if he could switch to a different medication and they were concerned with his presentation today. Patient notes he has been consuming 3 bottles of wine, daily for years. He notes he does not drink for inebriation but to avoid withdrawal. Patient denies pain. He does note bleeding gums as well as nosebleeds recently. He has had vomiting at times and vomitus contained brown digested blood. Related Data Home Medications ?Medication ?Instructions ?Recorded ?Confirmed famotidine 20 mg tablet (Pepcid) 20 mg PO BID #30 tabs 01/26/25 folic acid 1 mg tablet 1 mg PO DAILY #30 tabs 01/26/25 gabapentin 300 mg capsule See Rx Instructions .Route 01/26/25 .COMPLEX #4 caps lorazepam 0.5 mg tablet 0.5 mg PO BID PRN #8 tabs 01/26/25 ondansetron 4 mg disintegrating 4 mg PO Q8H PRN PRN #10 tabs 01/26/25 tablet thiamine HCl (vitamin B1) 100 mg 100 mg PO DAILY #30 tabs 01/26/25 tablet Previous Rx's ?Medication ?Instructions ?Recorded famotidine 20 mg tablet (Pepcid) 20 mg PO BID #30 tabs 01/26/25 folic acid 1 mg tablet 1 mg PO DAILY #30 tabs 01/26/25 gabapentin 300 mg capsule See Rx Instructions .Route 01/26/25 .COMPLEX #4 caps lorazepam 0.5 mg tablet 0.5 mg PO BID PRN #8 tabs 01/26/25 ondansetron 4 mg disintegrating 4 mg PO Q8H PRN PRN #10 tabs 01/26/25 tablet thiamine HCl (vitamin B1) 100 mg 100 mg PO DAILY #30 tabs 01/26/25 tablet Allergies Allergy/AdvReac Type Severity Reaction Status Date / Time No Known Allergies Allergy Unverified 01/24/25 15:31 General Stated Complaint: ETOHWithdr COLTON: 2 Review of Systems All systems reviewed & are unremarkable except as noted in HPI and below Constitutional Constitutional: Reports fatigue, Denies fever(s) and Reports weakness Cardiovascular Cardiovascular: Denies chest pain and Denies dyspnea Respiratory Respiratory: Denies dyspnea Gastrointestinal Gastrointestinal: Reports as per HPI Neurologic Neurologic: Reports weakness Endocrine Endocrine: Reports fatigue Exam Const General: cooperative Orientation: alert and awake HENNE Mouth: mucous membranes dry Eyes Conjunctivae: normal conjunctivae Sclera: scleral abnormality bilaterally (icterus) Neck Neck: trachea midline Resp Auscultation: clear to auscultation bilaterally, no rales, no rhonchi and no wheezes Cardio Rate: tachycardic Rhythm: regular rhythm GI Palpation: soft, not firm, no guarding, no masses, not rigid and nontender Skin General skin exam: jaundice Neuro General: patient alert, patient awake and tone normal Extrem General: no edema Psych Appearance: grossly normal Mental Status: mental status grossly normal Course Vital Signs Vital signs: Vital Signs Temperature 36.8 C 04/19/25 10:29 Pulse 109 H 04/19/25 10:29 Respiratory Rate 16 04/19/25 10:29 Blood Pressure 113/78 04/19/25 10:29 Pulse Oximetry 94 04/19/25 10:29 Temperature 36.8 C 04/19/25 10:29 Pulse 109 H 04/19/25 10:29 Respiratory Rate 16 04/19/25 10:29 Respiratory Pattern Normal 04/19/25 12:02 Blood Pressure 113/78 04/19/25 10:29 Pulse Oximetry 94 04/19/25 10:29 Oxygen Delivery Method Room Air 04/19/25 10:29 Oxygen Flow Rate 0 04/19/25 10:29 Lab/Test Results Lab/Test Results: Laboratory Tests Range/Units 04/19/25 04/19/25 10:55 11:04 WBC (4.4-10.8) 10^3/uL 13.80 H RBC (4.36-5.78) 10^6/uL 2.96 L Hgb (13.5-17.5) g/dL 10.4 L Hct (40.0-50.0) % 31.2 L MCV (80-95) fL 105 H MCH (27.0-33.0) pg 35.1 H MCHC (32.0-36.0) % 33.3 RDW (11.8-14.1) % 15.4 H Plt Count (130-400) 10^3/uL 110 L MPV (8.0-11.0) fL 10.1 Immature Gran % % 0.4 Neutrophils % % 85.8 Lymphocytes % % 6.1 Monocytes % % 6.1 Eosinophils % % 0.8 Basophils % % 0.8 Nucleated RBC % (0.0-0.3) % 0.0 Absolute Neutrophils (1.2-6.7) 10^3/uL 11.84 H Absolute Lymphocytes (1.2-3.4) 10^3/uL 0.84 L Absolute Monocytes (0.1-0.8) 10^3/uL 0.84 H Absolute Eosinophils (0.0-0.7) 10^3/uL 0.11 Absolute Basophils (0.0-0.2) 10^3/uL 0.11 PT (9.1-11.1) sec 21.8 H INR (0.9-1.1) 2.3 H APTT (20.6-30.2) sec 34.8 H VBG pH (7.31-7.41) 7.50 H VBG pCO2 (41-51) mmHg 36 L VBG pO2 mmHg 56 VBG HCO3 (23-28) mmol/L 28 VBG Total CO2 (24-29) mmol/L 25 VBG O2 Saturation % 89 VBG Base Excess (-2-3) mmol/L 5 H VBG Lactate (<or=2.0) mmol/L 1.5 Sodium (136-145) mmol/L 136 Potassium (3.5-5.1) mmol/L 3.8 Chloride (98-107) mmol/L 98 Carbon Dioxide (20.0-31.0) mmol/L 25.2 Anion Gap (3-11) mmol/L 12.3 H BUN (9-23) mg/dL 6 L Creatinine (0.73-1.18) mg/dL 0.41 L Est GFR (CKD-EPI 2020) (mL/min/1.73m2) 231.62 Glucose (74-106) mg/dL 126 H Calcium (8.3-10.6) mg/dL 9.2 Magnesium (1.6-2.6) mg/dL 2.1 Total Bilirubin (0.2-1.2) mg/dL 7.8 H AST (<34) U/L 232 H ALT (10-49) U/L 34 Alkaline Phosphatase (46-116) U/L 338 H Total Protein (5.7-8.2) g/dL 9.3 H Albumin (3.2-5.0) g/dL 3.6 Lipase (<53) U/L 92 H TSH (0.55-4.78) uIU/mL 4.84 H Ethyl Alcohol (<3) mg/dL < 3.0 ABO/Rh B Positive Antibody Screen NEGATIVE Medical Decision Making 39-year-old male with alcohol use disorder here with petechial rash and increasing jaundice, currently being treated with clonazepam and clonidine for outpatient detoxification. Concern for acute on chronic alcoholic hepatitis and liver failure. Patient tachycardic with low normal blood pressure on arrival. Patient to receive IV fluid bolus. Initial labs reviewed and significant abnormalities including thrombocytopenia with platelets 110 anemia with hemoglobin 10.4, INR 2.3, VBG consistent with respiratory alkalosis. Total bilirubin 7.8, AST 232 and ALT 34. Plan to hospitalize for continued detoxification and monitoring labs. Acute hepatitis panel sent. I spoke with Dr. Crockett, on-call hospitalist, he will meet the patient. Lab Data Lab results reviewed: Yes I reviewed the patient's lab results. Labs: Laboratory Tests Range/Units 04/19/25 04/19/25 10:55 11:04 WBC (4.4-10.8) 10^3/uL 13.80 H RBC (4.36-5.78) 10^6/uL 2.96 L Hgb (13.5-17.5) g/dL 10.4 L Hct (40.0-50.0) % 31.2 L MCV (80-95) fL 105 H MCH (27.0-33.0) pg 35.1 H MCHC (32.0-36.0) % 33.3 RDW (11.8-14.1) % 15.4 H Plt Count (130-400) 10^3/uL 110 L MPV (8.0-11.0) fL 10.1 Immature Gran % % 0.4 Neutrophils % % 85.8 Lymphocytes % % 6.1 Monocytes % % 6.1 Eosinophils % % 0.8 Basophils % % 0.8 Nucleated RBC % (0.0-0.3) % 0.0 Absolute Neutrophils (1.2-6.7) 10^3/uL 11.84 H Absolute Lymphocytes (1.2-3.4) 10^3/uL 0.84 L Absolute Monocytes (0.1-0.8) 10^3/uL 0.84 H Absolute Eosinophils (0.0-0.7) 10^3/uL 0.11 Absolute Basophils (0.0-0.2) 10^3/uL 0.11 PT (9.1-11.1) sec 21.8 H INR (0.9-1.1) 2.3 H APTT (20.6-30.2) sec 34.8 H VBG pH (7.31-7.41) 7.50 H VBG pCO2 (41-51) mmHg 36 L VBG pO2 mmHg 56 VBG HCO3 (23-28) mmol/L 28 VBG Total CO2 (24-29) mmol/L 25 VBG O2 Saturation % 89 VBG Base Excess (-2-3) mmol/L 5 H VBG Lactate (<or=2.0) mmol/L 1.5 Sodium (136-145) mmol/L 136 Potassium (3.5-5.1) mmol/L 3.8 Chloride (98-107) mmol/L 98 Carbon Dioxide (20.0-31.0) mmol/L 25.2 Anion Gap (3-11) mmol/L 12.3 H BUN (9-23) mg/dL 6 L Creatinine (0.73-1.18) mg/dL 0.41 L Est GFR (CKD-EPI 2020) (mL/min/1.73m2) 231.62 Glucose (74-106) mg/dL 126 H Calcium (8.3-10.6) mg/dL 9.2 Magnesium (1.6-2.6) mg/dL 2.1 Total Bilirubin (0.2-1.2) mg/dL 7.8 H AST (<34) U/L 232 H ALT (10-49) U/L 34 Alkaline Phosphatase (46-116) U/L 338 H Total Protein (5.7-8.2) g/dL 9.3 H Albumin (3.2-5.0) g/dL 3.6 Lipase (<53) U/L 92 H TSH (0.55-4.78) uIU/mL 4.84 H Ethyl Alcohol (<3) mg/dL < 3.0 ABO/Rh B Positive Antibody Screen NEGATIVE Quality:SDOH Health Related Social Needs: Health related social needs risk of homeless personal safety finding work lonely/isolated education Health related social needs details Pt needs new home, job and support. Dad is in [facility] in [place] for Parkinsons [facility] All Active Problems (Updated 04/19/25 @ 12:21 by Charan Plata MD) Anemia (Chronic) Thrombocytopenia (Chronic) Alcohol withdrawal (Acute) Acute dehydration (Acute) Hyperbilirubinemia (Acute) Elevated TSH (Acute) Elevated LDL cholesterol level (Acute) Alcohol dependence with alcohol-induced anxiety disorder (Acute) Alcohol withdrawal (Acute) Elevated liver function tests (Acute) Medical History Alcohol withdrawal syndrome with complication Social History Smoking/Tobacco Use Status: Former Tobacco Use Tobacco: How many years used: 19 Smoking risk assessment performed?: Yes Alcohol Intake: current Alcohol Intake frequency: 3 or more drinks per day Alcohol type: wine Drug use: Never Substance use type: marijuana Housing: homeless Do you feel safe at home: No Do you feel safe in your relationship?: No PAWSS Have you Been Recently Intoxicated or Drunk Within the Last 30 days?: Yes Have you Ever Experienced Previous Episodes of Alcohol Withdrawal?: Yes Have you ever Experienced Withdrawal Seizures?: No Have you ever Experienced Delirium Tremens(DT)s?: No Have you ever undergone Alcohol Rehabilitation Treatment (i.e, inpt ot outpatient treatment programs)?: Yes Have you ever Experienced Blackouts?: Yes Have you ever Combined Alcohol with other Downers within the last 90 days?: No Have you ever Combined Alcohol with any other Substance of Abuse during the last 90 days?: No Result: 4
--- NOTE | 2025-04-19 12:21 | W.PM.HP.N ---
Date of service: 04/19/25 Time of Service: 12:22 Assessment and Plan Assessment and plan (1) Acute on chronic liver failure: Status: Acute Assessment and plan: As per HPI Child class C - 10 points Abdominal US pending INR 2.8 and as per points 2,3, 4 Most likely in the setting of alcoholic liver disease (2) Alcoholic liver disease: Status: Acute Assessment and plan: As above Lipase pending Will administer steroids Patient has been ETOH free for 3 days [facility] Oral therapy with lorazepam Considartion given to : Steroids, NAC, and antibiotics Daily steroids and monitor for infection (3) Anemia: Status: Chronic Assessment and plan: Hgb 10.4 CBC in AM No acute bleeding source in the setting of ACLD (4) Thrombocytopenia: Status: Chronic Assessment and plan: platelet 110 and as above (5) Hyperbilirubinemia: Status: Acute Assessment and plan: Total Bili 7.8 trending up from previous and baseline conjugated bili pending (6) Transaminitis: Status: Acute Assessment and plan: As per HPI in 12/2024 transaminitis was more pronounced CMP in AM (7) Alcohol withdrawal: Status: Acute Assessment and plan: [facility] benzodiazepine - ETOH w/d protocol Considered phenobarbital for higher scores but in the setting of liver failure this is not indicated at this stage Not scoring when seen X2 - mild headache w/o light or noise sensitivity , minimal tachycardia - denies hallucinations (8) Portal hypertension: Status: Acute Assessment and plan: Suspected with transaminitis, cirrhosis , hepatomegaly splenomegaly on previous US , teleangectasia and ongoing ETOH abuse US abd pending - no EUS available Discussed with Dr. Vila History of Present Illness Narrative: Amparo Mcgarry is a 39 year old man with a past medical history of psoriasis on PRN clobetasol, ETOH abuse, elevated transaminase,hypelipiodemia, elevated lipase recent hospitalization ETOH dependance and withdrawal with complication, and discharge on 01/26/25 presnted to the ED from PCP's office for concerns of jaundice, petichial rash, tachycardia and low blood pressure., increased somnolence and falls. His PCP had started clonazepam and clonidine for outpatient ETOH detox. Work-up in the ED was positive fro INR 2.3, Hgb 10.4, platelets 110, PH 7.50, PCO2 36, HCO3 28, AST 323, ALT 34, ALK 338. The patient was admitted to the medical surgical floor by the hospitalist service for acute on chronic liver failure, alcoholic hepatitis, metabolic alkalosis. reports:dizziness , headache, frequent falls no head strike, frequent retching w limited vomiting episodes with seldom red brown spots, , nose and gum bleed, no ETOH intake x3 days denies: chills, fever ,change in vision, chest pain, bright red hematemesis, melena or hematochezia, dysuria Full code status confirmed Review of Systems All systems reviewed & are unremarkable except as noted in HPI and below PFSH All Active Problems (Updated 04/19/25 @ 14:17 by Evelyn Montoya APRN) Alcoholic liver disease (Acute) Portal hypertension (Acute) Acute on chronic liver failure (Acute) Transaminitis (Acute) Anemia (Chronic) Thrombocytopenia (Chronic) Alcohol withdrawal (Acute) Acute dehydration (Acute) Hyperbilirubinemia (Acute) Elevated TSH (Acute) Elevated LDL cholesterol level (Acute) Alcohol dependence with alcohol-induced anxiety disorder (Acute) Alcohol withdrawal (Acute) Elevated liver function tests (Acute) Medical History Alcohol withdrawal syndrome with complication Social History Smoking/Tobacco Use Status: Former Tobacco Use Tobacco: How many years used: 19 Smoking risk assessment performed?: Yes Alcohol Intake: current Alcohol Intake frequency: 3 or more drinks per day Alcohol type: wine Drug use: Never Substance use type: marijuana Housing: house Do you feel safe at home: No Do you feel safe in your relationship?: No Meds Allergies and Home Medications Allergies Allergy/AdvReac Type Severity Reaction Status Date / Time No Known Allergies Allergy Unverified 01/24/25 15:31 Home Medications ?Medication ?Instructions ?Recorded ?Confirmed ?Type clonidine HCl 0.1 mg tablet 0.1 mg PO BID 04/19/25 04/19/25 History promethazine 25 mg tablet 25 mg PO Q6H PRN 04/19/25 04/19/25 History Exam Narrative Exam Narrative: 39 yo male looking of stated age, in no acute distress, icteric scelra, non-injected, dry mucous membranes, teleangectasia to face and upper chest , Alert and oriented X4,no focal neurological deficits, shallow breathing, clear lungs with decreased bases RR 22-25, S1, S2, regular , 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 HR 99-101 sinusal rhythm, abdomen is rounded , sligthly distended , soft and non-tender, minimal ascites , no obvious fluid wave , no CVA tenderness, psoriasis scars to back - petichiae to upper chest , face - arms Results Labs 04/19/25 10:55 04/19/25 10:55 Labs: Laboratory Results - last 24 hr 04/19/25 04/19/25 10:55 11:04 WBC 13.80 H RBC 2.96 L Hgb 10.4 L Hct 31.2 L MCV 105 H MCH 35.1 H MCHC 33.3 RDW 15.4 H Plt Count 110 L MPV 10.1 Immature Gran % 0.4 Neutrophils % 85.8 Lymphocytes % 6.1 Monocytes % 6.1 Eosinophils % 0.8 Basophils % 0.8 Nucleated RBC % 0.0 Absolute Neutrophils 11.84 H Absolute Lymphocytes 0.84 L Absolute Monocytes 0.84 H Absolute Eosinophils 0.11 Absolute Basophils 0.11 PT 21.8 H INR 2.3 H APTT 34.8 H VBG pH 7.50 H VBG pCO2 36 L VBG pO2 56 VBG HCO3 28 VBG Total CO2 25 VBG O2 Saturation 89 VBG Base Excess 5 H VBG Lactate 1.5 Sodium 136 Potassium 3.8 Chloride 98 Carbon Dioxide 25.2 Anion Gap 12.3 H BUN 6 L Creatinine 0.41 L Est GFR (CKD-EPI 2020) 231.62 Glucose 126 H Calcium 9.2 Magnesium 2.1 Total Bilirubin 7.8 H AST 232 H ALT 34 Alkaline Phosphatase 338 H Total Protein 9.3 H Albumin 3.6 Lipase 92 H TSH 4.84 H Ethyl Alcohol < 3.0 ABO/Rh B Positive Antibody Screen NEGATIVE Last Vital Signs Temp 36.8 C 04/19/25 10:29 Pulse 109 H 04/19/25 10:29 Resp 16 04/19/25 10:29 BP 113/78 04/19/25 10:29 Pulse Ox 94 04/19/25 10:29 VTE Prohylaxis Risk Level: Moderate/High Risk Contraindications: Active bleed/high bleed risk Prophylaxis: Mechanical PAWSS Have you Been Recently Intoxicated or Drunk Within the Last 30 days?: Yes Have you Ever Experienced Previous Episodes of Alcohol Withdrawal?: Yes Have you ever Experienced Withdrawal Seizures?: No Have you ever Experienced Delirium Tremens(DT)s?: No Have you ever undergone Alcohol Rehabilitation Treatment (i.e, inpt ot outpatient treatment programs)?: Yes Have you ever Experienced Blackouts?: Yes Have you ever Combined Alcohol with other Downers within the last 90 days?: No Have you ever Combined Alcohol with any other Substance of Abuse during the last 90 days?: No Result: 4 Time Spent Time spent with Patient: >75 minutes Time was spent: preparing to see the patient(eg.review tests), obtaining and/or reviewing separately otained hiistory, ordering medications,tests, procedures, referring, communicating with other health critical care nurse specialist, indepentently interpreting results, counseling the patient, care coordination and other
[2025-04-19 14:31] LABS: Bilirubin, Direct 4.1 mg/dL (<=0.3)
--- NOTE | 2025-04-19 15:09 | W.PC.ACHO ---
Registration Status: REG ER Primary Language: Preferred Language: ED Information & Data Chief Complaint ETOHWithdr 04/19/25 12:21 Triage Note Jaundice with petechial rash 04/19/25 10:29 on trunk, face arms - last ETOH tuesday, 2 btl wine/day drinker, food aversion, losing weight. has been seen by [facility] for OP detox. Was prescribed Clonazepam TID and Clonidine Medical / Surgical History (Last Reviewed 04/19/25 @ 12:15 by Charan Plata MD) Alcohol withdrawal syndrome with complication Most Recent Vital Signs Temperature 36.7 C 04/19/25 14:38 Pulse 99 H 04/19/25 15:01 Pulse 100 H 04/19/25 15:01 Respiratory Rate 35 H 04/19/25 15:01 Respiratory Pattern Normal 04/19/25 14:37 Blood Pressure 91/64 L 04/19/25 15:00 Blood Pressure Mean 71 04/19/25 15:00 Pulse Oximetry 94 04/19/25 15:01 Oxygen Delivery Method Room Air 04/19/25 10:29 Oxygen Flow Rate 0 04/19/25 10:29 Allergies No Known Allergies Allergy (Unverified 01/24/25 15:31) Precautions Isolation Standard precaution 04/19/25 12:02 IV IV Catheter Type [Left Saline Lock Antecubital] IV Catheter Type [Right Saline Lock Forearm] IV Catheter Gauge [Left 20 Antecubital] IV Catheter Gauge [Right 18 Forearm] Diagnostics 04/19/25 04/19/25 Range/Units 11:04 10:55 WBC 13.80 H (4.4-10.8) 10^3/uL RBC 2.96 L (4.36-5.78) 10^6/uL Hgb 10.4 L (13.5-17.5) g/dL Hct 31.2 L (40.0-50.0) % MCV 105 H (80-95) fL MCH 35.1 H (27.0-33.0) pg MCHC 33.3 (32.0-36.0) % RDW 15.4 H (11.8-14.1) % Plt Count 110 L (130-400) 10^3/uL MPV 10.1 (8.0-11.0) fL Immature Gran % 0.4 % Neutrophils % 85.8 % Lymphocytes % 6.1 % Monocytes % 6.1 % Eosinophils % 0.8 % Basophils % 0.8 % Nucleated RBC % 0.0 (0.0-0.3) % Absolute Neutrophils 11.84 H (1.2-6.7) 10^3/uL Absolute Lymphocytes 0.84 L (1.2-3.4) 10^3/uL Absolute Monocytes 0.84 H (0.1-0.8) 10^3/uL Absolute Eosinophils 0.11 (0.0-0.7) 10^3/uL Absolute Basophils 0.11 (0.0-0.2) 10^3/uL PT 21.8 H (9.1-11.1) sec INR 2.3 H (0.9-1.1) APTT 34.8 H (20.6-30.2) sec VBG pH 7.50 H (7.31-7.41) VBG pCO2 36 L (41-51) mmHg VBG pO2 56 mmHg VBG HCO3 28 (23-28) mmol/L VBG Total CO2 25 (24-29) mmol/L VBG O2 Saturation 89 % VBG Base Excess 5 H (-2-3) mmol/L VBG Lactate 1.5 (<or=2.0) mmol/L Sodium 136 (136-145) mmol/L Potassium 3.8 (3.5-5.1) mmol/L Chloride 98 (98-107) mmol/L Carbon Dioxide 25.2 (20.0-31.0) mmol/L Anion Gap 12.3 H (3-11) mmol/L BUN 6 L (9-23) mg/dL Creatinine 0.41 L (0.73-1.18) mg/dL Est GFR (CKD-EPI 2020) 231.62 (mL/min/1.73m2) Glucose 126 H (74-106) mg/dL Calcium 9.2 (8.3-10.6) mg/dL Magnesium 2.1 (1.6-2.6) mg/dL Total Bilirubin 7.8 H (0.2-1.2) mg/dL Conjugated Bilirubin 4.1 H (<=0.3) mg/dL AST 232 H (<34) U/L ALT 34 (10-49) U/L Alkaline Phosphatase 338 H (46-116) U/L Total Protein 9.3 H (5.7-8.2) g/dL Albumin 3.6 (3.2-5.0) g/dL Lipase 92 H (<53) U/L TSH 4.84 H (0.55-4.78) uIU/mL Free T4 1.22 (0.89-1.76) ng/mL Ethyl Alcohol < 3.0 (<3) mg/dL Hepatitis A IgM Ab Pending Hep Bs Antigen Pending Hep B Core Total Ab Pending Hepatitis C Antibody Pending ABO/Rh B Positive Antibody Screen NEGATIVE Intake and Output - 24 Hour Total 04/19/25 10:21 thru 04/19/25 13:00 Intake Total 1000 Balance 1000 Weight 80.739 kg Intake: IV 1000 Falls Risk Assessment History of Falls No History 04/19/25 12:02 Fall Total Score 0 04/19/25 12:02 Level of Risk Standard/Low Risk 04/19/25 12:02 Problems (Last Reviewed 04/19/25 @ 12:15 by Charan Plata MD) Alcoholic liver disease (Acute) Portal hypertension (Acute) Acute on chronic liver failure (Acute) Transaminitis (Acute) Anemia (Chronic) Thrombocytopenia (Chronic) Alcohol withdrawal (Acute) Acute dehydration (Acute) Hyperbilirubinemia (Acute) Elevated liver function tests (Acute) Attestation Statement: By documenting the first initial, last name, and credentials of the reporting nurse below, both parties acknowledge that all relevant information regarding the patient handoff has been communicated, and that all questions have been addressed to ensure continuity and safety of care. Additional Patient Information/Comments: Report Received From: [facility] at 3:08pm
--- NOTE | 2025-04-19 16:24 | NUR.NOTE ---
Nursing Note: At 3:30pm report recieved from ER Vanna RN pt assisted into room via stretcher VSS BP soft 96/65 pt alert and oriented x 4 pt denies pain or nausea unsteady CIWA 8 full admissin done skin check done pt has a scattered dry rash back and face pt placed on telemetry with continuous pulse ox Bed alarm on reviewed safety protocal with pt call sol at side frequent rounds made
[2025-04-19] MEDS: LORazepam 1 MG TAB PO/SL ×2 (17:17→21:08)
[2025-04-19] MEDS: Pantoprazole 40 MG VIAL IVP (17:17)
[2025-04-19] MEDS: predniSONE 20 MG TAB 40 MG PO (17:17)
[2025-04-19] MEDS: MULTIVITAMIN 10 ML, THIAMINE 100 MG, FOLIC ACID 1 MG, MAGNESIUM SULFATE 1,000 MG in Nor... 168.867 ML IV (17:22)
[2025-04-19] MEDS: Normal Saline Flush 10 ML SYR (17:31)
[2025-04-19 19:28] LABS: Hepatitis A Antibody IgM Negative (Negative); Hepatitis C Ab w Rflx HCV PCR Negative (Negative)
[2025-04-20] VITALS (8 sets, daily range): BP systolic 84–108; BP diastolic 58–79; PULSE 86–97; RESP 16; TEMP 36.2–36.6; O2SAT 90–94
[2025-04-20] MEDS: LORazepam 1 MG TAB PO/SL ×4 (02:44→20:35)
[2025-04-20 06:51] LABS: Abs Immature Grans 0.08 10^3/uL (0.0-0.06); HCT 27.5 % (40.0-50.0); HGB 9.0 g/dL (13.5-17.5); Immature Grans % 0.6 %; MCH 34.9 pg (27.0-33.0); MCHC 32.7 % (32.0-36.0); MCV 107 fL (80-95); MPV 10.2 fL (8.0-11.0); Platelet Count 100 10^3/uL (130-400); RBC 2.58 10^6/uL (4.36-5.78); RDW 15.3 % (11.8-14.1); RDW-SD 59.9 fL; WBC 12.59 10^3/uL (4.4-10.8)
[2025-04-20 07:15] LABS: ALT 27 U/L (10-49); AST 167 U/L (<34); Albumin 3.2 g/dL (3.2-5.0); Alkaline Phosphatase 281 U/L (46-116); Anion Gap 11 mmol/L (3-11); BUN 8 mg/dL (9-23); Bilirubin, Total 6.3 mg/dL (0.2-1.2); CO2 23.0 mmol/L (20.0-31.0); Calcium 8.9 mg/dL (8.3-10.6); Chloride 104 mmol/L (98-107); Glucose 126 mg/dL (74-106); Potassium 4.1 mmol/L (3.5-5.1); Sodium 138 mmol/L (136-145); Total Protein 8.3 g/dL (5.7-8.2)
[2025-04-20] MEDS: predniSONE 20 MG TAB 40 MG PO (08:42)
--- NOTE | 2025-04-20 10:18 | PDOC.CMIN ---
Date of service: 04/20/25 Time of Service: 10:18 Care Management Initial Assmt Initial Assessment Reason for Hospitalization: Acute on chronic liver failure Functional Status/Living Situation Patient Presentation: Bird was lying in bed when CM met with him. He reported that he is still not feeling well, and stated this his anxiety is his primary concern. He reported that he spoke with the hospitalist, who was going to start him on some medication, but admitted that there was a lot of information provided to him, and he didn't feel that he absorbed it all. He stated that he planned to review the providers note; CM will suggest use of the portal. Bird discussed his current situation, which describes as being very difficult to manage, and has led him to increase his alcohol use, including going through a bad divorce, losing his job, and moving back in with his mother. He stated that his mother is supportive of him, and supports the idea of him not drinking, which he would like to pursue after this acute withdrawal. He stated that he was most worried about going through withdrawal. He stated that he is interested in going to the [facility], which is an alcohol treatment facility. He reported that he had been in a 7 day program there in the past, and although it was not a great experience, he would be interested in returning for their 30 day program. CM informed him that this would be a self referral, and asked if he would be interested in talking with a continuous improvement coach. He declined the continuous improvement coach at this time, but may be interested later, once he is feeling better. CM discussed his plan for discharge, noting that he will likely discharge home from this hospitalization, unless the [facility] has a bed available and can take him upon discharge, of which he expressed understanding. CM also discussed therapy in the community; he stated that the behavioral health specialist at his PCP office ([facility], Dr. Martin) is booked until August. CM suggested [facility] as a resource to find a local therapist. CM will continue to follow. Town of Residence: [place] Resides with: Parent (Mother, Terra) Natural Supports: Parents Instrumental Activities of Daily Living (ADLs): Independent Medications Medication Management: No Issues/Barriers identified Advance Directives Advance Directives: Do you have an Advance Directive: N 01/24/25, 15:18 AD On File at [facility]: N 01/24/25, 15:18 Date Asked 01/24/25 01/24/25, 15:19 AD Date Reviewed COLST On File at [facility] COLST Date Scanned Code Status Resuscitation Status Full Code Insurance Coverage/Financial Issues [facility] Care Team Visit Care Team Role Provider Type Unknown Unknown Primary Care Provider STAFF PHYSICIAN Charan Plata MD Emergency Provider [facility] STAFF PHYSICIAN Wally Vila Admit Provider [facility] STAFF PHYSICIAN Attending Provider Discharge Potential Discharge Needs: PCP F/U Appt Anticipated Barriers to Discharge: None Identified Patient/Family Education Needs: Review discharge instructions, discuss Ask Me Three Transportation: Private vehicle Plan: Anticipate Bird will return home once medically cleared. He will transport home via private vehicle by family. He is looking into going to alcohol rehab post discharge, and prefers to go to the [facility], which he will self refer to. He will follow up with his PCP and discharge plan of care. CM will continue to follow. Social Determinants of Health Screening Social Determinants of health last assessed in clinic: 04/20/25 Will the Patient Participate in the Screening?: Yes Do you worry about having a steady place to live?: no Problems where you live: no known problems In the past 12 months, have you had to go without electric, gas, oil or water in your home?: no 1. Within the past 12 months, we worried whether our food would run out before we got money to buy more.: Don't know/refused 2. Within the past 12 months, the food we bought just didn't last and we didn't have money to get more.: Don't know/refused Has lack of transportation kept you from medical appointments or from doing things needed for daily living?: no Has anyone in your life made you feel unsafe or unsupported?: no How hard is it for you to pay for the very basics like food, housing, medical care, and heating? Would you say it is:: Not hard at all Do you want help finding or keeping work or a job?: I do not need or want help If for any reason you need help with day-to-day activities such as bathing, preparing meals, shopping, managing finances, etc., do you get the help you need?: I don?t need any help How often do you feel lonely or isolated from those around you?: Never Do you speak a language other than Surinamese at home?: No Does the patient want assistance with any of the above?: No PFSH All Active Problems (Updated 04/20/25 @ 14:11 by Evelyn Montoya APRN) Anxiety (Chronic) Elevated INR (international normalized ratio) (Acute) Alcoholic liver disease (Acute) Portal hypertension (Acute) Acute on chronic liver failure (Acute) Transaminitis (Acute) Anemia (Chronic) Thrombocytopenia (Chronic) Alcohol withdrawal (Acute) Acute dehydration (Acute) Hyperbilirubinemia (Acute) Elevated TSH (Acute) Elevated LDL cholesterol level (Acute) Alcohol dependence with alcohol-induced anxiety disorder (Acute) Alcohol withdrawal (Acute) Elevated liver function tests (Acute) Medical History Alcohol withdrawal syndrome with complication Social History Smoking/Tobacco Use Status: Former Tobacco Use Tobacco: How many years used: 19 Smoking risk assessment performed?: Yes Alcohol Intake: current Alcohol Intake frequency: 3 or more drinks per day Alcohol type: wine Drug use: Never Substance use type: marijuana Housing: house Do you feel safe at home: No Do you feel safe in your relationship?: No
--- NOTE | 2025-04-20 10:33 | W.PM.PROGNOT ---
Date of Service Date of service: 04/20/25 Time of Service: 10:33 Assessment and Plan Assessment and plan (1) Acute on chronic liver failure: Status: Acute Assessment and plan: Child class C - 10 points Abdominal US progressing hepatomegaly and splenomegaly, no PVT INR 2.5 today from 2.3 -will continue to monitor And as per points 2,3, 4 Most likely in the setting of alcoholic liver disease Referral to hepatology on d/c (2) Alcoholic liver disease: Status: Acute Assessment and plan: As above Lipase 92 - was 117 in 12/2024- Administer steroids daily- Patient has been ETOH free for 4 days now - Ethyl negative on 04/19/25 CIWA Q4 H when awake Oral therapy with lorazepam -will reduce dosing in the setting of liver disease that potentially reduce elimination rate Considartion given to : Steroids, NAC, and antibiotics Daily steroids and monitor for infection IVF w MVI completed 1 l Daily folic acid and thiamine (3) Portal hypertension: Status: Acute Assessment and plan: Suspected with transaminitis, cirrhosis , hepatomegaly splenomegaly on previous US , teleangectasia and ongoing ETOH abuse US abd completed - no EUS available MAP> 70 , SBP high 90's to low 100's Discussed with Dr. Vila (4) Elevated INR (international normalized ratio): Status: Acute Assessment and plan: In the setting of ACLF- no bleeding, no invasive procedures planned INR 2.3 now 2.5 - no bleeding continue to trend daily (5) Anemia: Status: Chronic Assessment and plan: Hgb 9.0 - dilutional , no acute bleeding macrocytic : Vit B12 and folate levels CBC in AM (6) Thrombocytopenia: Status: Chronic Assessment and plan: platelet 100 form 110 on 04/20 and as above (7) Hyperbilirubinemia: Status: Acute Assessment and plan: Total Bili trending down today conjugated bili 4.1 CMP in AM (8) Transaminitis: Status: Acute Assessment and plan: Improving in 12/2024 transaminitis was more pronounced and hepatitis panel was negative hepatitis panel pending CMP in AM (9) Alcohol withdrawal: Status: Acute Assessment and plan: CIWA -Score trending down -8//2 this AM Ongoing benzodiazepine - ETOH w/d protocol - adjust dosing for oversedation Considering starting naltrexone but in the setting of ACLF Acamprosate started (10) Anxiety: Status: Chronic Assessment and plan: PRN low dose lorazepam- Hold RASS< [address] Vila Subjective Subjective Patient reports: no new complaints, feels better, tolerating liquids well, tolerating a regular diet, voiding w/o difficulty and bowel movement; denies diarrhea, nausea, vomiting, shortness of breath or fever Exam Narrative Exam Narrative: 39 yo male looking of stated age, in no acute distress, improving icteric scelra, non-injected, slightly dry mucous membranes, stable tele-angectasia to face and upper chest , Alert and oriented X4, no focal neurological deficits, shallow breathing, clear lungs with decreased bases, S1, S2, regular , tele SR, abdomen is rounded ,abd round non-distended , soft and non-tender, no CVA tenderness, psoriasis scars to back - petichiae to upper chest , face - arms Objective Last Vital Signs Temp 36.4 C L 04/20/25 08:49 Pulse 90 04/20/25 08:49 Resp 16 04/20/25 08:49 BP 96/72 L 04/20/25 08:49 Pulse Ox 92 04/20/25 08:49 Laboratory Results - last 24 hr 04/19/25 04/19/25 04/20/25 10:55 11:04 06:35 WBC 13.80 H 12.59 H RBC 2.96 L 2.58 L Hgb 10.4 L 9.0 L Hct 31.2 L 27.5 L MCV 105 H 107 H MCH 35.1 H 34.9 H MCHC 33.3 32.7 RDW 15.4 H 15.3 H Plt Count 110 L 100 L MPV 10.1 10.2 Immature Gran % 0.4 0.6 Neutrophils % 85.8 91.4 Lymphocytes % 6.1 4.9 Monocytes % 6.1 2.8 Eosinophils % 0.8 0.1 Basophils % 0.8 0.2 Nucleated RBC % 0.0 0.0 Absolute Neutrophils 11.84 H 11.51 H Absolute Lymphocytes 0.84 L 0.62 L Absolute Monocytes 0.84 H 0.35 Absolute Eosinophils 0.11 0.01 Absolute Basophils 0.11 0.03 PT 21.8 H INR 2.3 H APTT 34.8 H VBG pH 7.50 H VBG pCO2 36 L VBG pO2 56 VBG HCO3 28 VBG Total CO2 25 VBG O2 Saturation 89 VBG Base Excess 5 H VBG Lactate 1.5 Sodium 136 138 Potassium 3.8 4.1 Chloride 98 104 Carbon Dioxide 25.2 23.0 Anion Gap 12.3 H 11 BUN 6 L 8 L Creatinine 0.41 L 0.36 L Est GFR (CKD-EPI 2020) 231.62 269.12 Glucose 126 H 126 H Calcium 9.2 8.9 Magnesium 2.1 Total Bilirubin 7.8 H 6.3 H Conjugated Bilirubin 4.1 H AST 232 H 167 H ALT 34 27 Alkaline Phosphatase 338 H 281 H Total Protein 9.3 H 8.3 H Albumin 3.6 3.2 Lipase 92 H TSH 4.84 H Free T4 1.22 Ethyl Alcohol < 3.0 ABO/Rh B Positive Antibody Screen NEGATIVE PAWSS Have you Been Recently Intoxicated or Drunk Within the Last 30 days?: No Have you Ever Experienced Previous Episodes of Alcohol Withdrawal?: Yes Have you ever Experienced Withdrawal Seizures?: No Have you ever Experienced Delirium Tremens(DT)s?: No Have you ever undergone Alcohol Rehabilitation Treatment (i.e, inpt ot outpatient treatment programs)?: No Have you ever Experienced Blackouts?: No Have you ever Combined Alcohol with other Downers within the last 90 days?: No Have you ever Combined Alcohol with any other Substance of Abuse during the last 90 days?: No Positive Blood Alcohol level on Presentation? [PCS.BAL]: No Evidence of Increased Autonomic Activity (i.e. HR>120, tremor, sweating, agitation, nausea)?: No Result: 1 VTE Prohylaxis Risk Level: Moderate/High Risk Contraindications: Active bleed/high bleed risk Prophylaxis: Mechanical Time Spent with Patient Time Spent with Patient: >50 minutes Time was spent: preparing to see the patient(eg.review tests), obtaining and/or reviewing separately otained hiistory, ordering medications,tests, procedures, referring, communicating with other health residential child care counselor, indepentently interpreting results, counseling the patient, care coordination and other
[2025-04-20 11:36] LABS: INR 2.5 (0.9-1.1); Prothrombin Time 23.7 sec (9.1-11.1)
[2025-04-20 11:46] LABS: Ammonia 22 umol/L (11-32)
[2025-04-20] MEDS: Pantoprazole 40 MG TABCR PO (12:34)
[2025-04-20] MEDS: Acamprosate 333 MG TABCR 666 MG PO ×2 (14:42→20:23)
[2025-04-20] MEDS: Thiamine 100 MG TAB PO (15:57)
[2025-04-20] MEDS: Folic Acid 1 MG TAB PO (15:57)
[2025-04-20] MEDS: LORazepam 0.5 MG TAB PO (15:57)
[2025-04-21] VITALS (7 sets, daily range): BP systolic 86–108; BP diastolic 59–79; PULSE 84–104; RESP 16–18; TEMP 36.4–36.7; O2SAT 92–94
[2025-04-21] MEDS: LORazepam 1 MG TAB PO/SL ×2 (04:18→08:44)
[2025-04-21 06:32] LABS: Abs Immature Grans 0.06 10^3/uL (0.0-0.06); HCT 28.3 % (40.0-50.0); HGB 9.4 g/dL (13.5-17.5); Immature Grans % 0.4 %; MCH 35.6 pg (27.0-33.0); MCHC 33.2 % (32.0-36.0); MCV 107 fL (80-95); MPV 10.3 fL (8.0-11.0); Platelet Count 126 10^3/uL (130-400); RBC 2.64 10^6/uL (4.36-5.78); RDW 15.3 % (11.8-14.1); RDW-SD 58.9 fL; WBC 13.65 10^3/uL (4.4-10.8)
[2025-04-21 06:37] LABS: INR 2.3 (0.9-1.1); Prothrombin Time 22.0 sec (9.1-11.1)
[2025-04-21 06:49] LABS: ALT 27 U/L (10-49); AST 126 U/L (<34); Albumin 3.3 g/dL (3.2-5.0); Alkaline Phosphatase 284 U/L (46-116); Anion Gap 11.4 mmol/L (3-11); BUN 12 mg/dL (9-23); Bilirubin, Total 5.2 mg/dL (0.2-1.2); CO2 22.6 mmol/L (20.0-31.0); Calcium 8.9 mg/dL (8.3-10.6); Chloride 107 mmol/L (98-107); Glucose 96 mg/dL (74-106); Potassium 3.4 mmol/L (3.5-5.1); Sodium 141 mmol/L (136-145); Total Protein 8.1 g/dL (5.7-8.2)
[2025-04-21 07:07] LABS: Folate 12.6 ng/mL (>5.38); Vitamin B12 1173 pg/mL (211-911)
[2025-04-21] MEDS: Pantoprazole 40 MG TABCR PO (08:43)
[2025-04-21] MEDS: Folic Acid 1 MG TAB PO (08:43)
[2025-04-21] MEDS: predniSONE 20 MG TAB 40 MG PO (08:43)
[2025-04-21] MEDS: Cyanocobalamin 500 MCG TAB PO (08:44)
[2025-04-21] MEDS: Acetylcysteine 600 MG CAP PO (08:44)
[2025-04-21] MEDS: Thiamine 100 MG TAB PO (08:44)
[2025-04-21] MEDS: Acamprosate 333 MG TABCR 666 MG PO ×3 (08:44→19:33)
--- NOTE | 2025-04-21 12:37 | PT.INIE ---
PT Notes Visit Reasons: ACLF Inpatient Physical Therapy Evaluation Date: 04/21/25 Referring Doctor: Dr. Muse PT Orders: PT CONSULT: Precautions: fall, standard Patient Profile/Admitting Diagnosis: Bird is a 39 year old male referred for PT evaluation in acute care setting, where he is being managed for liver failure and alcoholic liver disease. Social History/Home Situation: Resides in a private home with his mother. States that he is normally independent, but that he's been very weak and short of breath for the past several weeks. Notes difficulty getting his socks on/off, climbing stairs, opening lids. Equipment Owned/DME: none Subjective: Bird states that he feels very weak and off balance. Denies any dizziness or lightheadedness. Objective: General Observation: Resting in bed. IV in bilat UEs. Telemetry in place. Mental Status: A&Ox3 Vital Signs: supine: 98/75, heart rate 101 Sittin/79, heart rate 106 Standin/78, heart rate 116 post ambulation: 112/75, heart rate 108 ROM: Right Upper Extremity: WFL Left Upper Extremity: WFL Right Lower Extremity: WFL Left Lower Extremity: WFL Strength: Right Upper Extremity: Grossly 3/ 5 or hip flexion 3+/5 Left Upper Extremity: Grossly 3/ 5 or greater for all shoulder motions Right Lower Extremity: Hip flexion 3+/5. Knee extension 4/5. Ankle dorsiflexion 4/5 Left Lower Extremity: Hip flexion 3+/5. Knee extension 4-/5. Ankle dorsiflexion 4/5 Coordination: Minor impairment with diminished amplitude with alternating toe tapping. Bed Mobility/Transfers: Supine?sit: Supervision Sit?supine: Supervision, with increased time to perform Sit?stand: Supervision Stand?sit: Supervision Gait: Ambulates 100 feet x 2 with CGA, no assistive device. Slow tyrone and limited foot clearance, although no significant ataxia noted. Balance: Static Sitting: Normal Dynamic Sitting: Normal Static Standing: Good Dynamic Standing: Good 4-Position Balance Test: 3/4 Small TAPAN: 10 seconds Partial Tandem: 10 seconds Full Tandem: 10 seconds Single Leg Stance: 5 seconds Special Tests: Mobility Limitations Standardized Measure [facility] AM-PAC 6 clicks Basic Mobility Inpatient Short Form: Raw Score: 22 CMS Score: 21% impairment Informed Consent/Education: Patient instructed in purpose of PT consult and plan of care. Treatment: Initial Evaluation (31930) Therapeutic Exercises ([id number]): Instructed in the following. Demonstrates significant fatigue with SLR. Provided with handout for independent completion 3x/day, and encouraged to walk with nursing whenever offered. Access Code: [email or web address] URL: [email or web address] Date: 04/21/2025 Prepared by: Anaya Riggs Exercises - Supine Ankle Pumps - 3 x daily - 7 x weekly - 1 sets - 10 reps - Supine Heel Slide - 3 x daily - 7 x weekly - 1 sets - 10 reps - Supine Active Straight Leg Raise - 3 x daily - 7 x weekly - 1 sets - 5 reps Assessment: Patient is a 39 year old male referred to physical therapy services in acute care setting, where he is being managed for liver failure. Patient presents with limitations in strength and activity tolerance, and requires complete intervention to maximize safety and mobility to allow for safe transition home once medically stable. He will benefit from continued PT intervention in outpatient setting upon discharge. He currently demonstrates the following impairment level findings: 1 decreased upper extremity strength 2. Decreased lower extremity strength 3. decreased activity tolerance Impairments are contributing to the following functional limitations: 1. Increased time to perform bed mobility 2. Decreased activity tolerance 3. Difficulty donning and doffing socks Patient is assessed as Moderate 64163 complexity based on the following: History:as above Examination: As above Presentation: Evolving due to acute medical status Decision Making: Moderate complexity Goals: Goals X1 week 1. Supine-Sit : supervision 2. Sit-Supine : supervision 3. Sit-Stand : supervision 4. Stand-Sit : supervision 5. Bed-Chair : supervision 6. Chair-Bed : supervision 7. Gait : supervision x 100' 8. Stairs : supervision x 100' Plan of Care/Treatment Plan: 1-2x/day, 7 days/week x 1 week. Plan of care has been reviewed with the BODY SHOP ESTIMATOR providing the service under Physical Therapy direction. Initiate Physical Therapy intervention for strengthening, bed mobility, transfers, gait, stairs, balance training, use of assistive device. DISCHARGE RECOMMENDATIONS: Home with outpatient PT TREATMENT CODE/TIME: [id number] ([id number], [id number]) Anaya Riggs, PT, DPT [facility] PFS All Active Problems (Updated 04/20/25 @ 14:11 by Evelyn Montoya APRN) Anxiety (Chronic) Elevated INR (international normalized ratio) (Acute) Alcoholic liver disease (Acute) Portal hypertension (Acute) Acute on chronic liver failure (Acute) Transaminitis (Acute) Anemia (Chronic) Thrombocytopenia (Chronic) Alcohol withdrawal (Acute) Acute dehydration (Acute) Hyperbilirubinemia (Acute) Elevated TSH (Acute) Elevated LDL cholesterol level (Acute) Alcohol dependence with alcohol-induced anxiety disorder (Acute) Alcohol withdrawal (Acute) Elevated liver function tests (Acute) Medical History Alcohol withdrawal syndrome with complication
[2025-04-21] MEDS: Potassium Chloride 20 MEQ TABCR 40 MEQ PO (12:38)
[2025-04-21] MEDS: PHYTONADIONE 10 MG in Normal Saline 50 ML 200 MG IVPB (16:45)
--- NOTE | 2025-04-21 18:14 | W.PM.PROGNOT ---
Date of Service Date of service: 04/21/25 Time of Service: 18:14 Assessment and Plan Assessment and plan (1) Acute on chronic liver failure: Status: Acute Assessment and plan: Secondary to alcohol use, see below No signs of portal vein thrombosis/budd chiari on abd u/s MELD on admission 23, Maddrey's high, started on steroids and NAC MELD 04/21 is 21, some improvement Plan will be home on prednisone, get Lille score at 7 days from admission with PCP to decide whether to continue. (2) Elevated INR (international normalized ratio): Status: Acute Assessment and plan: Secondary to liver failure, but given 10mg vitamin K today in case some nutritional component. (3) Alcohol dependence with alcohol-induced anxiety disorder: Status: Acute Assessment and plan: He is no longer in withdrawal, cancel protocol and stop lorazepam He hasn't been on medical treatement. Disulfuram contraindicated, I am hesistant to use naltrexone with decompensated cirrhosis Try topiramate after discussion, may also help some with anxiety/sleep Encourage groups, CBT. He is also interested in rehab placement. (4) Anxiety: Status: Chronic Assessment and plan: Chronic, seems to predate AUD, though clearly complicated by alcohol use try sertraline (5) Anemia: Status: Chronic Assessment and plan: A/w AUD. Iron not low. 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 Viral hep screens pending. Will send [id number]. Discharge Planning Discharge Planning: home 04/22 if stable Subjective Subjective Patient reports: no new complaints, tolerating a regular diet and voiding w/o difficulty; denies diarrhea, nausea, vomiting, shortness of breath or fever Interval history since last seen: Events: Withdrawal protocol/prn lorazepam stopped. He is feeling okay. He is still quite anxious, but not shaking. He hasn't slept more than an hour at a time for a long time. hasn't tried meds for AUD or anxiety in a long time. Took SSRIs and stimulants for depression as child. Exam Narrative Exam Narrative: GEN: Alert and oriented, NAD HEENT: icteric. MMM Lungs: CTAB, nl effort CV: RRR, no m/g Abd: +BS, soft, NT/ND, no fluid wave ext: no edema, not tender. neuro: no tremor/asterixis Objective Last Vital Signs Temp 36.6 C 04/21/25 12:57 Pulse 104 H 04/21/25 12:57 Resp 16 04/21/25 12:57 BP 108/79 04/21/25 12:57 Pulse Ox 94 04/21/25 12:57 Laboratory Results - last 24 hr 04/21/25 05:39 WBC 13.65 H RBC 2.64 L Hgb 9.4 L Hct 28.3 L MCV 107 H MCH 35.6 H MCHC 33.2 RDW 15.3 H Plt Count 126 L MPV 10.3 Immature Gran % 0.4 Neutrophils % 87.3 Lymphocytes % 5.8 Monocytes % 5.9 Eosinophils % 0.5 Basophils % 0.1 Nucleated RBC % 0.0 Absolute Neutrophils 11.92 H Absolute Lymphocytes 0.79 L Absolute Monocytes 0.81 H Absolute Eosinophils 0.07 Absolute Basophils 0.01 PT 22.0 H INR 2.3 H Sodium 141 Potassium 3.4 L Chloride 107 Carbon Dioxide 22.6 Anion Gap 11.4 H BUN 12 Creatinine 0.43 L Est GFR (CKD-EPI 2020) 219.23 Glucose 96 Calcium 8.9 Total Bilirubin 5.2 H AST 126 H ALT 27 Alkaline Phosphatase 284 H Total Protein 8.1 Albumin 3.3 Vitamin B12 1173 H Folate 12.6 PAWSS Have you Been Recently Intoxicated or Drunk Within the Last 30 days?: No Have you Ever Experienced Previous Episodes of Alcohol Withdrawal?: Yes Have you ever Experienced Withdrawal Seizures?: No Have you ever Experienced Delirium Tremens(DT)s?: No Have you ever undergone Alcohol Rehabilitation Treatment (i.e, inpt ot outpatient treatment programs)?: No Have you ever Experienced Blackouts?: No Have you ever Combined Alcohol with other Downers within the last 90 days?: No Have you ever Combined Alcohol with any other Substance of Abuse during the last 90 days?: No Positive Blood Alcohol level on Presentation? [PCS.BAL]: No Evidence of Increased Autonomic Activity (i.e. HR>120, tremor, sweating, agitation, nausea)?: No Result: 1 VTE Prohylaxis Risk Level: Moderate/High Risk Contraindications: Active bleed/high bleed risk Prophylaxis: Mechanical Time Spent with Patient Time Spent with Patient: 35-49 minutes Time was spent: preparing to see the patient(eg.review tests), obtaining and/or reviewing separately otained hiistory, ordering medications,tests, procedures, referring, communicating with other health acute care assistant, indepentently interpreting results, counseling the patient and care coordination
[2025-04-21] MEDS: Topiramate 50 MG TAB PO (19:33)
[2025-04-21] MEDS: Normal Saline Flush 10 ML SYR IVP (23:07)
[2025-04-22 03:31] VITALS: BP 96/70; PULSE 80; RESP 14; TEMP 36.4; O2SAT 92
[2025-04-22 06:37] LABS: INR 2.3 (0.9-1.1); Prothrombin Time 22.1 sec (9.1-11.1)
[2025-04-22 07:20] LABS: ALT 35 U/L (10-49); AST 160 U/L (<34); Albumin 3.3 g/dL (3.2-5.0); Alkaline Phosphatase 275 U/L (46-116); Anion Gap 13 mmol/L (3-11); BUN 14 mg/dL (9-23); Bilirubin, Direct 2.8 mg/dL (<=0.3); Bilirubin, Total 4.8 mg/dL (0.2-1.2); CO2 21.0 mmol/L (20.0-31.0); Calcium 9.0 mg/dL (8.3-10.6); Chloride 106 mmol/L (98-107); Glucose 87 mg/dL (74-106); Potassium 3.6 mmol/L (3.5-5.1); Sodium 140 mmol/L (136-145); Total Protein 8.1 g/dL (5.7-8.2)
[2025-04-22] MEDS: Pantoprazole 40 MG TABCR PO (09:03)
[2025-04-22] MEDS: Folic Acid 1 MG TAB PO (09:03)
[2025-04-22] MEDS: Sertraline 25 MG TAB PO (09:04)
[2025-04-22] MEDS: Acamprosate 333 MG TABCR 666 MG PO ×2 (09:04→14:40)
[2025-04-22] MEDS: predniSONE 20 MG TAB 40 MG PO (09:04)
[2025-04-22] MEDS: Polyethylene Glycol 3350 17 GM PACKET PO (09:05)
[2025-04-22] MEDS: Acetylcysteine 600 MG CAP PO (09:05)
[2025-04-22] MEDS: Thiamine 100 MG TAB PO (09:05)
[2025-04-22] MEDS: Cyanocobalamin 500 MCG TAB PO (09:05)
--- NOTE | 2025-04-22 10:40 | W.PM.DS.N ---
Date of service: 04/22/25 Time of Service: 10:40 DS: Diagnosis Discharge Diagnosis (1) Acute on chronic liver failure: Status: Acute (2) Elevated INR (international normalized ratio): Status: Acute (3) Alcohol dependence with alcohol-induced anxiety disorder: Status: Acute (4) Anxiety: Status: Chronic (5) Anemia: Status: Chronic (6) Cirrhosis, alcoholic: Discharge Plan Disposition Patient Disposition: Home Anticipated Discharge Date/Time: 04/22/25 14:00 Condition: Improving Discharge Details Reason For Visit: ACLF Admit Date/Time: 04/19/25 12:30 Admit Provider: Wally Vila Attending Provider: Wally Vila Primary Care Provider: Abdoul Martin Hospital Course Hospital Course: Bird Mcgarry is a 39 year old man with a past medical history of psoriasis on PRN clobetasol, ETOH abuse, transaminitis, hyperlipidemia, elevated lipase recent hospitalization ETOH dependance and withdrawal with complication, and discharge on 01/26/25 presented to the ED from PCP's office for concerns of jaundice, petichial rash, tachycardia and low blood pressure., increased somnolence and falls. His PCP had started clonazepam and clonidine for outpatient ETOH detox. Work-up in the ED was positive fro INR 2.3, Hgb 10.4, platelets 110, PH 7.50, PCO2 36, HCO3 28, AST 323, ALT 34, ALK 338. The patient was admitted to the medical surgical floor by the hospitalist service for acute on chronic liver failure, alcoholic hepatitis, metabolic alkalosis. Conjugated bilirubin was 4.1. Ongoing ETOH withdrawal protocol with lorazepam with improvement of symptoms. IV fluid continued with improved metabolic panel results and symptomatology. No portal vein thrombosis/Budd chiari as per abdominal US but worsening splenomegaly and hepatomegaly. Predinsone and NAC initiated as per Child-Monsalve class C and Maddrey's score. Acute hepatitis panel was negative. INR remained stable despite oral vitamin K; vitamin B1 ongoing, no supplementation for vitamin B12 or folate indicated. The patient was started on acomprosate, topiramax to assist in alcohol abstinence and sertraline for anxiety, no furhter benzodiazepine indicated. 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 Recommendation for outpatient therapy at the [facility] or [facility]; the patient will not consider [facility]onim[facility] but plan to attend the [facility] in [place]. Need to follow-up with PCP within 7 days of discharge ( 04/28 the latest). Recommendation for the patient to be seen in hepatology needed as per PCP referral. Outpatient blood work ordered. Discussed with Dr. Vila Recommendations for Follow Up Recommended tests to be ordered by follow up provider: Needs a referral in hepatology, alpha-1- anti-trypsin pending - Lille score in 7 days and decide on prednisone treatment Home Meds and New Rx's Prescriptions: New acamprosate 333 mg Tablet,Delayed Release (Dr/Ec) 666 mg PO TID Qty: 180 0RF acetylcysteine 600 mg Capsule 600 mg PO DAILY Qty: 30 0RF pantoprazole 40 mg Tablet,Delayed Release (Dr/Ec) 40 mg PO DAILY@0730 Qty: 30 0RF polyethylene glycol 3350 17 gram Powder In Packet 17 g PO DAILY Qty: 30 0RF prednisone 20 mg Tablet 40 mg PO DAILY Qty: 4 0RF sertraline 25 mg Tablet 25 mg PO DAILY Qty: 30 0RF thiamine mononitrate (vit B1) [Vitamin B-1 (mononitrate)] 100 mg Tablet 100 mg PO DAILY Qty: 30 0RF topiramate 50 mg Tablet 50 mg PO HS Qty: 30 0RF famotidine [Pepcid] 20 mg tablet 20 mg PO DAILY Qty: 30 0RF clobetasol-emollient 0.05 % cream 1 applic topical BID PRNQty: 15 0RF Discontinued clonidine HCl 0.1 mg tablet 0.1 mg PO BID Patient Comments: TAKE 1 TABLET BY MOUTH TWICE DAILY promethazine 25 mg tablet 25 mg PO Q6H PRN Patient Comments: TAKE 1 TABLET BY MOUTH EVERY 4 TO 6 HOURS NEEDED FOR NAUSEA Discharge Instructions Stand Alone Forms: Portal Information, Nursing Discharge Form Referrals: Abdoul Martin MD [Primary Care Provider, Medicine] Referral Note: Referral with PCP in 7 days please ( 04/28/25) for evaluation of continuation of oral prednisone need as per Lille score at 7 days from admission Activity:: Activity as Tolerated Equipment/Supplies:: No Equipment Needed Diet:: regular w protein and no alcohol Discharge Orders Discharge Orders: Discharge Order (Routine); Ordered 04/22/25 Ordered By: Evelyn Montoya Other Ambulatory Orders: Comprehensive Metabolic Panel (Routine) Timeframe: 20250427 Facility: [facility] - Location: Laboratory Outpatient - [facility] Ordered By: Evelyn Montoya Prothrombin Time (Routine) Timeframe: 20250427 Facility: [facility] - Location: Laboratory Outpatient - [facility] Ordered By: Evelyn Montoya DS: Summary Time Spent with Patient providing and/or coordinating discharge services: Greater than 30 minutes Status at Discharge Functional status at discharge: independent ambulation Overall status at discharge: patient is progressing back to baseline Mental Status: mental status grossly normal Speech and Movement: speech and movement normal Mood: congruent mood Affect: normal affect Quality:SDOH Health Related Social Needs: Health related social needs risk of homeless personal safety finding work lonely/isolated education Health related social needs details Pt needs new home, job and support. Dad is in [facility] house in [place] for Parkinsons Exam Narrative Exam Narrative: 39 yo male looking of stated age, in no acute distress, reduced icteric scelra, moist mucous membranes, stable tele-angectasia to face and upper chest, petichiae to upper chest , face - arms not progressing , Alert and oriented X4, no focal neurological deficits unlabored breathing, clear lungs S1, S2, regular , abdomen non-distended , soft and non-tender,no ascites, stable plaque of psoriasis scars to back - Psych Mental Status: mental status grossly normal Speech and Movement: speech and movement normal Mood: congruent mood Affect: normal affect DS: Data Vitals/I&O Vitals and I&O: Vital Signs Temperature 36.4 C L 04/22/25 03:31 Temperature Source Temporal Artery Scan 04/22/25 03:31 Pulse 80 04/22/25 03:31 Pulse Rhythm Regular 04/19/25 15:43 Pulse 100 H 04/19/25 15:01 Respiratory Rate 14 04/22/25 03:31 Respiratory Effort Normal, Non-Labored 04/19/25 15:43 Respiratory Depth Normal 04/19/25 15:43 Respiratory Pattern Normal 04/19/25 15:43 Blood Pressure 96/70 L 04/22/25 03:31 Blood Pressure Mean 78 04/22/25 03:31 Pulse Oximetry 92 04/22/25 03:31 Oxygen Delivery Method Room Air 04/22/25 03:31 Oxygen Flow Rate 0 04/22/25 03:31 Pain Level 0 04/21/25 12:32 Intake & Output 04/21/25 04/21/25 04/22/25 11:59 23:59 11:59 Intake Total 480 / 1011 531 / 1011 Balance 480 / 1011 531 / 1011 Weight 80.6 kg 80.7 kg Intake: IV 51 / 51 Oral 480 / 960 480 / 960 Other: Urine Color Light Michelle Dark Michelle Urine Appearance Clear Urine Odor Normal Normal Comment unmeasureable urine in toliet pt up to toilet to void. pt denies dysuria Stool Size Moderate Stool Characteristics Soft Data Completed and Pending Pending Labs at Discharge: 04/19/25 04/19/25 04/20/25 10:55 11:04 06:35 WBC 13.80 H 12.59 H RBC 2.96 L 2.58 L Hgb 10.4 L 9.0 L Hct 31.2 L 27.5 L MCV 105 H 107 H MCH 35.1 H 34.9 H MCHC 33.3 32.7 RDW 15.4 H 15.3 H Plt Count 110 L 100 L MPV 10.1 10.2 Immature Gran % 0.4 0.6 Neutrophils % 85.8 91.4 Lymphocytes % 6.1 4.9 Monocytes % 6.1 2.8 Eosinophils % 0.8 0.1 Basophils % 0.8 0.2 Nucleated RBC % 0.0 0.0 Absolute Neutrophils 11.84 H 11.51 H Absolute Lymphocytes 0.84 L 0.62 L Absolute Monocytes 0.84 H 0.35 Absolute Eosinophils 0.11 0.01 Absolute Basophils 0.11 0.03 PT 21.8 H INR 2.3 H APTT 34.8 H VBG pH 7.50 H VBG pCO2 36 L VBG pO2 56 VBG HCO3 28 VBG Total CO2 25 VBG O2 Saturation 89 VBG Base Excess 5 H VBG Lactate 1.5 Sodium 136 138 Potassium 3.8 4.1 Chloride 98 104 Carbon Dioxide 25.2 23.0 Anion Gap 12.3 H 11 BUN 6 L 8 L Creatinine 0.41 L 0.36 L Est GFR (CKD-EPI 2020) 231.62 269.12 Glucose 126 H 126 H Calcium 9.2 8.9 Magnesium 2.1 Total Bilirubin 7.8 H 6.3 H Conjugated Bilirubin 4.1 H AST 232 H 167 H ALT 34 27 Alkaline Phosphatase 338 H 281 H Ammonia Total Protein 9.3 H 8.3 H Albumin 3.6 3.2 [id number] Lipase 92 H Vitamin B12 Folate TSH 4.84 H Free T4 1.22 Ethyl Alcohol < 3.0 Hepatitis A IgM Ab Negative Hep Bs Antigen Negative Hep B Core Total Ab Negative Hepatitis C Antibody Negative ABO/Rh B Positive Antibody Screen NEGATIVE 04/20/25 04/21/25 04/22/25 11:18 05:39 05:50 WBC 13.65 H RBC 2.64 L Hgb 9.4 L Hct 28.3 L MCV 107 H MCH 35.6 H MCHC 33.2 RDW 15.3 H Plt Count 126 L MPV 10.3 Immature Gran % 0.4 Neutrophils % 87.3 Lymphocytes % 5.8 Monocytes % 5.9 Eosinophils % 0.5 Basophils % 0.1 Nucleated RBC % 0.0 Absolute Neutrophils 11.92 H Absolute Lymphocytes 0.79 L Absolute Monocytes 0.81 H Absolute Eosinophils 0.07 Absolute Basophils 0.01 PT 23.7 H 22.0 H 22.1 H INR 2.5 H 2.3 H 2.3 H APTT VBG pH VBG pCO2 VBG pO2 VBG HCO3 VBG Total CO2 VBG O2 Saturation VBG Base Excess VBG Lactate Sodium 141 140 Potassium 3.4 L 3.6 Chloride 107 106 Carbon Dioxide 22.6 21.0 Anion Gap 11.4 H 13 H BUN 12 14 Creatinine 0.43 L 0.45 L Est GFR (CKD-EPI 2020) 219.23 208.02 Glucose 96 87 Calcium 8.9 9.0 Magnesium Total Bilirubin 5.2 H 4.8 H Conjugated Bilirubin 2.8 H AST 126 H 160 H ALT 27 35 Alkaline Phosphatase 284 H 275 H Ammonia 22 Total Protein 8.1 8.1 Albumin 3.3 3.3 Vebiu-3-Dnhsevvticl Pending Lipase Vitamin B12 1173 H Folate 12.6 TSH Free T4 Ethyl Alcohol Hepatitis A IgM Ab Hep Bs Antigen Hep B Core Total Ab Hepatitis C Antibody ABO/Rh Antibody Screen PFSH All Active Problems (Updated 04/21/25 @ 18:21 by Wally Vila) Anxiety (Chronic) Elevated INR (international normalized ratio) (Acute) Alcoholic liver disease (Acute) Portal hypertension (Acute) Acute on chronic liver failure (Acute) Transaminitis (Acute) Anemia (Chronic) Thrombocytopenia (Chronic) Alcohol withdrawal (Acute) Acute dehydration (Acute) Hyperbilirubinemia (Acute) Elevated TSH (Acute) Elevated LDL cholesterol level (Acute) Alcohol dependence with alcohol-induced anxiety disorder (Acute) Alcohol withdrawal (Acute) Elevated liver function tests (Acute) Medical History (Updated 04/21/25 @ 18:21 by Wally Vila) Cirrhosis, alcoholic Alcohol withdrawal syndrome with complication Social History Smoking/Tobacco Use Status: Former Tobacco Use Tobacco: How many years used: 19 Smoking risk assessment performed?: Yes Alcohol Intake: current Alcohol Intake frequency: 3 or more drinks per day Alcohol type: wine Drug use: Never Substance use type: marijuana Housing: house Do you feel safe at home: No Do you feel safe in your relationship?: No Time Spent with Patient Time Spent with Patient: >85 minutes Time was spent: preparing to see the patient(eg.review tests), obtaining and/or reviewing separately otained hiistory, ordering medications,tests, procedures, referring, communicating with other health patient care representative, indepentently interpreting results, counseling the patient, care coordination and other
--- NOTE | 2025-04-22 11:11 | CMDISCH_ITS ---
Date of service: 04/22/25 Time of Service: 11:11 LACE Index Scoring Tool Questions: Length of Stay (in days): 3 Was the patient admitted via the E.D.?: Yes E.D. Visits: 1 Answers: Total Score: 7 Risk of Readmission: Low Risk Care Management Discharge Plan Reason for Hospitalization: ACFL (Acute on chronic liver failure) Discharge Plan: Bird met with a recovery operator today, then discharged home via private vehicle with family. He will follow up with community providers and continue per his discharge plan of care as directed. No new services were ordered prior to discharge. Patient/Family Education Needs: Review discharge instructions, discuss ask me three. SDOH Health Related Social Needs: Health related social needs risk of homeless personal safety finding work lonely/isolated education Health related social needs details Pt needs new home, job and support. Dad is in [facility] in [place] for Parkinsons
--- NOTE | 2025-04-22 11:21 | PTTR_ITS ---
Date of service: 04/22/25 PT Notes Visit Reasons: ACLF Inpatient Physical Therapy Treatment Note [facility] Date:04/22/2025 PRECAUTIONS:fall , IV access BUE, Standard SUBJECTIVE: Pt reports he is going home this afternoon and feels good about it. He states he only feels slight light headedness as he stands from sitting position. OBJECTIVE: young male supine in bed on his phone agreeable to participate in session. ? PAIN: denied VITALS: ? Pre-Treatment: 98/74 HR 84 ? Post-Treatment: 108/73 HR 94 Therapeutic Activities ([id number][]): Direct one-on-one instruction in dynamic activities to improve functional performance. ? BED MOBILITY/TRANSFERS? Rolling L/R: Independent Supine-sit: Independent? Sit-supine:Independent ? Sit-stand: [independent? Stand-sit: independent? Bed-Chair: independent? Chair-bed: independent Provided skilled cues and instruction on performance and technique t hradelaideout. Facilitated safe and correct performance of level surface ambulation covering a distance of 200 feet without device with SBA for safety. Did not report of any increased pain. Denied headache, chest pain, and lightheadedness throughout activity. Pt demonstrates slow tyrone with reduced knee flexion B , wide TAPAN. STAIRS: 3 4 steps? and 2 6 steps with rails SBA reciprocal pattern x 3 trials? ASSESSMENT:? Pt tolerated session well. demonstrating stability with ambulation for community distnaces without AD. He did note fatigue in his legs at the end of session but did not feel unsteady. Discussed with pt Outpatient PT to progress with strengthening balance. PLAN: cont with POC until discharge to home TREATMENT CODE/TIME:54477/ [id number] DISCHARGE RECOMMENDATION: Outpatient PT
[2025-04-22 11:31] VITALS: BP 108/73; PULSE 94; RESP 17; TEMP 36.7; O2SAT 96
[2025-04-23 09:38] LABS: Alpha 1 Antitrypsin,Serum 244 mg/dL (90-200)
== END 2025-04-22 15:15 | disposition home or self-care (01) | DRG 896 ==
LOC: ER 12:21 → MS 15:32
PROVIDERS: Nurse Practitioner Acute Care; Admitting Provider Family Medicine; Emergency Provider Student in an Organized Health Care Education/Training Program; PCP Family Medicine; Visit Provider Family Medicine
DX: F10.239 Alcohol dependence with withdrawal, unspecified (principal); K72.00 Acute and subacute hepatic failure without coma; E87.3 Alkalosis; K76.6 Portal hypertension; F10.280 Alcohol dependence with alcohol-induced anxiety disorder; K70.10 Alcoholic hepatitis without ascites; D69.6 Thrombocytopenia, unspecified; R74.01 Elevation of levels of liver transaminase levels; R79.1 Abnormal coagulation profile; K70.30 Alcoholic cirrhosis of liver without ascites; Z79.899 Other long term (current) drug therapy; Y90.0 Blood alcohol level of less than 20 mg/100 ml; L40.9 Psoriasis, unspecified; E78.5 Hyperlipidemia, unspecified; R00.0 Tachycardia, unspecified; I95.9 Hypotension, unspecified; R29.6 Repeated falls; R04.0 Epistaxis; E86.0 Dehydration; I78.1 Nevus, non-neoplastic; D53.9 Nutritional anemia, unspecified
CPT/HCPCS: 00123; 36415; 80048; 80053; 80076; 82805; 83690; 86704; 86709; 86803; 86850; 86900; 86901; 87340; 93005; 96360; 97110; 97162; 97530; 99285; 76700; 80320; 82103; 82140; 82248; 82607; 82746; 83605; 83735; 84439; 84443; 85025; 85610; 85730; 93010; 99223; 99232; 99233; 99239; J2470; J3411; J3430; J3475; J3490; J7512

== ENCOUNTER 2025-04-24 09:54 | Outpatient (REF) | payer OTHER, SELFPAY ==
[2025-04-24 16:02] LABS: HCT 30.8 % (40.0-50.0); HGB 10.4 g/dL (13.5-17.5); MCH 37.4 pg (27.0-33.0); MCHC 33.8 % (32.0-36.0); MCV 111 fL (80-95); MPV 11.1 fL (8.0-11.0); Platelet Count 177 10^3/uL (130-400); RBC 2.78 10^6/uL (4.36-5.78); RDW 15.5 % (11.8-14.1); RDW-SD 62.7 fL; WBC 14.90 10^3/uL (4.4-10.8)
[2025-04-24 16:23] LABS: ALT 68 U/L (10-49); AST 212 U/L (<34); Albumin 3.6 g/dL (3.2-5.0); Alkaline Phosphatase 272 U/L (46-116); Anion Gap 11.3 mmol/L (3-11); BUN 12 mg/dL (9-23); Bilirubin, Total 6.7 mg/dL (0.2-1.2); CO2 24.7 mmol/L (20.0-31.0); Calcium 9.0 mg/dL (8.3-10.6); Chloride 101 mmol/L (98-107); Glucose 86 mg/dL (74-106); Potassium 3.9 mmol/L (3.5-5.1); Sodium 137 mmol/L (136-145); Total Protein 8.5 g/dL (5.7-8.2)
== END 2025-04-24 09:55 | disposition home or self-care (01) ==
LOC: NCHCN 09:54
PROVIDERS: PCP Family Medicine; Visit Provider Family Medicine
DX: K70.30 Alcoholic cirrhosis of liver without ascites (principal)
CPT/HCPCS: 80053; 85027; 80320